=== PATIENT | male | born 1945 | race Caucasian/White ===

== ENCOUNTER 2016-03-29 | Outpatient (CLI) | payer MEDICARE | END 2016-03-29 19:43 | disposition short-term general hospital (02) | CPT/HCPCS: A0170; A0425; A0426 ==

== ENCOUNTER 2016-03-29 14:49 | Emergency (ER) | payer MEDICARE ==
[2016-03-29] MEDS ORDERED: SODIUM CHLORIDE 0.9% 1,000 ML IV ONE ×5 (15:16→18:05)
[2016-03-29] MEDS ORDERED: IBUPROFEN 800 MG TABLET PO STA (15:25)
[2016-03-29] MEDS ORDERED: IBUPROFEN 800 MG TABLET PO ONE (15:28)
[2016-03-29] MEDS ORDERED: METOPROLOL 5 MG/5 ML VIAL IVP ONE ×2 (15:34→15:47)
[2016-03-29] MEDS ORDERED: METOPROLOL 5 MG/5 ML VIAL IVP STA ×2 (15:38)
[2016-03-29] MEDS ORDERED: MAGNESIUM SULFATE 2 GRAM 50 ML IV ONE ×2 (15:41→15:47)
[2016-03-29] MEDS ORDERED: PIPERACILLIN/TAZOBACTAM 4.5 GM in SODIUM CHLORIDE 0.9% MINIBAG 100 ML IV STA (16:31)
[2016-03-29] MEDS ORDERED: VANCOMYCIN INJ 1 GM in SODIUM CHLORIDE 0.9% 250 ML IV STA (16:31)
[2016-03-29] MEDS ORDERED: VANCOMYCIN 1 GM VIAL ONE (17:17)
== END 2016-03-29 19:42 | disposition short-term general hospital (02) ==
DX: A41.9 Sepsis, unspecified organism (principal); I47.1 Supraventricular tachycardia; I48.91 Unspecified atrial fibrillation
CPT/HCPCS: 36415; 71010; 80053; 83605; 83690; 83735; 84100; 84484; 85025; 87040; 87070; 87275; 87276; 87430; 93005; 93010; 96361; 96365; 96375; 99285; 99291; A9270; J3370

== ENCOUNTER 2016-04-05 08:02 | Outpatient (CLI) | payer MEDICARE | END 2016-04-05 08:03 | disposition home or self-care (01) | DX: I48.91 Unspecified atrial fibrillation (principal); I51.4 Myocarditis, unspecified ==

== ENCOUNTER 2021-05-21 17:28 | Outpatient (CLI) | payer MEDICARE | END 2021-05-21 17:29 | disposition critical access hospital (66) | LOC: MERGE 17:28 → EMS 17:28 | DX: R29.810 Facial weakness (principal); R47.81 Slurred speech; R53.1 Weakness | CPT/HCPCS: A0425; A0429 ==

== ENCOUNTER 2021-05-21 17:37 | Inpatient (IN) | payer MEDICARE ==
--- NOTE | 2021-05-21 17:44 | ED Physician Documentation ---
PD HPI FOCAL NEURO - Stated complaint Stated Complaint: RT SIDED WEAKNESS - History obtained from History obtained from: Patient, EMS - History of Present Illness Timing - duration: Hours (1.5) Timing - details: Abrupt onset Weakness: Face, Arm, Hand, Leg, Foot, Right Numbness: No: Face, Arm, Hand, Leg, Foot, Right, Left Associated symptoms: Headache (Patient has a mild gradual onset headache), Chest pain (Patient states that he has mild chest pain.). No: Nausea / vomiting, Seizure Contributing factors: negative: Anticoagulated, Vascular dz, Atrial fibrillation, Prosthetic heart valve Baseline status: positive: A&OX3, ambulatory, indep Similar symptoms before: Has not had sx before Recently seen: Not recently seen - Additional information Additional information: Patient is a 76-year-old male with a history of hypertension who presents to the emergency department with right-sided weakness. Last seen normal about 415 today. He then went and took a nap. When he woke up he could not move his right side or speak. Nothing makes it better or worse. Has not had similar symptoms previously. Brought in by EMS today. Patient states he does not take any medications at home. Review of Systems Ten Systems: 10 systems reviewed and negative Constitutional: denies: Fever, Chills Ears: denies: Ear pain Nose: denies: Rhinorrhea / runny nose, Congestion Respiratory: denies: Dyspnea, Cough, Wheezing GI: denies: Nausea, Vomiting, Diarrhea Musculoskeletal: denies: Neck pain, Back pain Neurologic: denies: Numbness, Headache PD PAST MEDICAL HISTORY - Past Medical History Past Medical History: Yes Cardiovascular: Congestive heart failure, Hypertension - Allergies Allergies/Adverse Reactions: Allergies Allergy/AdvReac Type Severity Reaction Status Date / Time No Known Drug Allergies Allergy Verified 05/21/21 17:55 - Living Situation Living Situation: reports: With family Living Arrangement: reports: At home - Social History Does the pt smoke?: No Does the pt drink ETOH?: No Does the pt have substance abuse?: No - Family History Family history: reports: Non contributory PD ED PE NORMAL - Vitals Vital signs reviewed: Yes - General General: Alert and oriented X 3, No acute distress - HEENT HEENT: PERRL, Moist mucous membranes - Neck Neck: Supple, no meningeal sign - Cardiac Cardiac: RRR - Respiratory Respiratory: No respiratory distress, Clear bilaterally - Abdomen Abdomen: Soft, Non tender, Non distended - Derm Derm: Warm and dry - Extremities Extremities: No edema - Neuro Neuro: Alert and oriented X 3 Eye Opening: Spontaneous Motor: Obeys Commands Verbal: Oriented GCS Score: 15 NIHSS - Time Time: 17:56 - Level of Consciousness Level of consciousness: (0) Alert, Keenly responsive LOC Questions: (0) Answers both Q's correct LOC Commands: (0) Performs both correctly - Gaze Best Gaze: (0) Normal - Visual Visual: (0) No loss - Facial Palsy Facial Palsy: (3) Complete paralysis - Motor Arms (both separate) Motor Arm (right): (4) No movement Motor Arm (left): (0) No drift - Motor Legs (both separate) Motor Leg (right): (2) Some effort against gravity Motor Leg (left): (0) No drift - Limb Ataxia Limb Ataxia: (0) Absent - Sensory Sensory: (0) Normal - Best Language Best Language: (1) [id number] - Dysarthria Dysarthria: (1) [id number] dysarthria - Extinction and Inattention (formally neg Extinction and inattention: (0) No abnormality - Total Score/Results Total Score/Result: 11 Results - Vitals Vitals: Vital Signs - 24 hr 05/21/21 05/21/21 05/21/21 17:56 17:58 18:28 Temperature 36.7 C 36.7 C Heart Rate 99 99 110 H Respiratory 30 H 30 H 30 H Rate Blood Pressure 252/144 H 252/144 H 194/104 H O2 Saturation 94 99 94 05/21/21 05/21/21 05/21/21 18:30 19:00 19:04 Temperature 38.0 C H Heart Rate 112 H 150 H 69 Respiratory 30 H 30 H 23 Rate Blood Pressure 190/100 H 173/99 H 154/78 H O2 Saturation 96 94 94 05/21/21 05/21/21 05/21/21 19:23 19:30 20:00 Temperature 37.3 C Heart Rate 138 H 120 H 124 H Respiratory 26 H 28 H 24 Rate Blood Pressure 130/74 159/87 H O2 Saturation 93 89 L Oxygen O2 Source Nasal cannula - Labs Labs: Laboratory Tests 05/21/21 05/21/21 05/21/21 18:04 18:06 18:06 WBC 7.1 RBC 5.96 Hgb 17.6 Hct 51.8 MCV 86.9 MCH 29.5 MCHC 34.0 RDW 12.7 Plt Count 241 MPV 9.7 Neut # (Auto) Not Reportable Lymph # (Auto) Not Reportable [place] # (Auto) Not Reportable Eos # (Auto) Not Reportable Baso # (Auto) Not Reportable Absolute Nucleated RBC Not Reportable Total Counted 100 Band Neuts % (Manual) 31 H Abnorm Lymph % (Manual) 0 Nucleated RBC % Not Reportable Neutrophils # (Manual) 6.1 Lymphocytes # (Manual) 0.9 L Monocytes # (Manual) 0.0 Eosinophils # (Manual) 0.1 Basophils # (Manual) 0.0 Differential Comment MANUAL DIFFERENTIAL Platelet Estimate NORMAL (130-450,000) Platelet Morphology 1+ LARGE PLATELETS RBC Morph Micro Appear NORMAL APPEARANCE PT 13.8 H INR 1.2 APTT 28.3 Sodium Potassium Chloride Carbon Dioxide Anion Gap BUN Creatinine Estimated GFR (MDRD) Glucose POC Whole Bld Glucose 82 Lactic Acid Calcium Total Bilirubin AST ALT Alkaline Phosphatase Troponin I High Sens B-Natriuretic Peptide Total Protein Albumin Globulin Albumin/Globulin Ratio Urine Color Urine Clarity Urine pH Ur Specific [place] Urine Protein Urine Glucose (UA) Urine Ketones Urine Occult Blood Urine Nitrite Urine Bilirubin Urine Urobilinogen Ur Leukocyte Esterase Urine RBC Urine WBC Ur Squamous Epith Cells Urine Bacteria Ur Microscopic Review Urine Culture Comments Nasal Adenovirus (PCR) Nasal B. parapertussis DNA (PCR) Nasal Coronavir 229E PCR Nasal Coronavir HKU1 PCR Nasal Coronavir NL63 PCR Nasal Coronavir OC43 PCR Nasal Enterovir/Rhinovir PCR Nasal Influenza B PCR Nasal Influenza A PCR Nasal Parainfluen 1 PCR Nasal Parainfluen 2 PCR Nasal Parainfluen 3 PCR Nasal Parainfluen 4 PCR Nasal RSV (PCR) Nasal B.pertussis DNA PCR Nasal C.pneumoniae (PCR) Russell Human Metapneumo PCR Nasal M.pneumoniae (PCR) Nasal SARS-CoV-2 (PCR) Ethyl Alcohol 05/21/21 05/21/21 05/21/21 18:06 18:06 18:06 WBC RBC Hgb Hct MCV MCH MCHC RDW Plt Count MPV Neut # (Auto) Lymph # (Auto) [place] # (Auto) Eos # (Auto) Baso # (Auto) Absolute Nucleated RBC Total Counted Band Neuts % (Manual) Abnorm Lymph % (Manual) Nucleated RBC % Neutrophils # (Manual) Lymphocytes # (Manual) Monocytes # (Manual) Eosinophils # (Manual) Basophils # (Manual) Differential Comment Platelet Estimate Platelet Morphology RBC Morph Micro Appear PT INR APTT Sodium 144 Potassium 3.7 Chloride 106 Carbon Dioxide 25 Anion Gap 13.0 BUN 29 H Creatinine 1.2 Estimated GFR (MDRD) 59 L Glucose 98 POC Whole Bld Glucose Lactic Acid Calcium 9.9 Total Bilirubin 1.0 AST 37 ALT 55 Alkaline Phosphatase 87 Troponin I High Sens 53.2 H* B-Natriuretic Peptide 286 H Total Protein 7.8 Albumin 4.3 Globulin 3.5 Albumin/Globulin Ratio 1.2 Urine Color Urine Clarity Urine pH Ur Specific [place] Urine Protein Urine Glucose (UA) Urine Ketones Urine Occult Blood Urine Nitrite Urine Bilirubin Urine Urobilinogen Ur Leukocyte Esterase Urine RBC Urine WBC Ur Squamous Epith Cells Urine Bacteria Ur Microscopic Review Urine Culture Comments Nasal Adenovirus (PCR) Nasal B. parapertussis DNA (PCR) Nasal Coronavir 229E PCR Nasal Coronavir HKU1 PCR Nasal Coronavir NL63 PCR Nasal Coronavir OC43 PCR Nasal Enterovir/Rhinovir PCR Nasal Influenza B PCR Nasal Influenza A PCR Nasal Parainfluen 1 PCR Nasal Parainfluen 2 PCR Nasal Parainfluen 3 PCR Nasal Parainfluen 4 PCR Nasal RSV (PCR) Nasal B.pertussis DNA PCR Nasal C.pneumoniae (PCR) Russell Human Metapneumo PCR Nasal M.pneumoniae (PCR) Nasal SARS-CoV-2 (PCR) Ethyl Alcohol 05/21/21 05/21/21 05/21/21 19:00 19:00 19:04 WBC RBC Hgb Hct MCV MCH MCHC RDW Plt Count MPV Neut # (Auto) Lymph # (Auto) [place] # (Auto) Eos # (Auto) Baso # (Auto) Absolute Nucleated RBC Total Counted Band Neuts % (Manual) Abnorm Lymph % (Manual) Nucleated RBC % Neutrophils # (Manual) Lymphocytes # (Manual) Monocytes # (Manual) Eosinophils # (Manual) Basophils # (Manual) Differential Comment Platelet Estimate Platelet Morphology RBC Morph Micro Appear PT INR APTT Sodium Potassium Chloride Carbon Dioxide Anion Gap BUN Creatinine Estimated GFR (MDRD) Glucose POC Whole Bld Glucose Lactic Acid Calcium Total Bilirubin AST ALT Alkaline Phosphatase Troponin I High Sens B-Natriuretic Peptide Total Protein Albumin Globulin Albumin/Globulin Ratio Urine Color YELLOW Urine Clarity CLOUDY Urine pH 6.5 Ur Specific [place] 1.015 Urine Protein NEGATIVE Urine Glucose (UA) NEGATIVE Urine Ketones NEGATIVE Urine Occult Blood LARGE H Urine Nitrite POSITIVE H Urine Bilirubin NEGATIVE Urine Urobilinogen 0.2 (NORMAL) Ur Leukocyte Esterase TRACE H Urine RBC TNTC H Urine WBC >25 H Ur Squamous Epith Cells NONE SEEN Urine Bacteria Many H Ur Microscopic Review INDICATED Urine Culture Comments INDICATED Nasal Adenovirus (PCR) NOT DETECTED Nasal B. parapertussis DNA (PCR) NOT DETECTED Nasal Coronavir 229E PCR NOT DETECTED Nasal Coronavir HKU1 PCR NOT DETECTED Nasal Coronavir NL63 PCR NOT DETECTED Nasal Coronavir OC43 PCR NOT DETECTED Nasal Enterovir/Rhinovir PCR NOT DETECTED Nasal Influenza B PCR NOT DETECTED Nasal Influenza A PCR NOT DETECTED Nasal Parainfluen 1 PCR NOT DETECTED Nasal Parainfluen 2 PCR NOT DETECTED Nasal Parainfluen 3 PCR NOT DETECTED Nasal Parainfluen 4 PCR NOT DETECTED Nasal RSV (PCR) NOT DETECTED Nasal B.pertussis DNA PCR NOT DETECTED Nasal C.pneumoniae (PCR) NOT DETECTED Russell Human Metapneumo PCR NOT DETECTED Nasal M.pneumoniae (PCR) NOT DETECTED Nasal SARS-CoV-2 (PCR) NOT DETECTED Ethyl Alcohol < 5.0 05/21/21 19:51 WBC RBC Hgb Hct MCV MCH MCHC RDW Plt Count MPV Neut # (Auto) Lymph # (Auto) [place] # (Auto) Eos # (Auto) Baso # (Auto) Absolute Nucleated RBC Total Counted Band Neuts % (Manual) Abnorm Lymph % (Manual) Nucleated RBC % Neutrophils # (Manual) Lymphocytes # (Manual) Monocytes # (Manual) Eosinophils # (Manual) Basophils # (Manual) Differential Comment Platelet Estimate Platelet Morphology RBC Morph Micro Appear PT INR APTT Sodium Potassium Chloride Carbon Dioxide Anion Gap BUN Creatinine Estimated GFR (MDRD) Glucose POC Whole Bld Glucose Lactic Acid 4.3 H* Calcium Total Bilirubin AST ALT Alkaline Phosphatase Troponin I High Sens B-Natriuretic Peptide Total Protein Albumin Globulin Albumin/Globulin Ratio Urine Color Urine Clarity Urine pH Ur Specific [place] Urine Protein Urine Glucose (UA) Urine Ketones Urine Occult Blood Urine Nitrite Urine Bilirubin Urine Urobilinogen Ur Leukocyte Esterase Urine RBC Urine WBC Ur Squamous Epith Cells Urine Bacteria Ur Microscopic Review Urine Culture Comments Nasal Adenovirus (PCR) Nasal B. parapertussis DNA (PCR) Nasal Coronavir 229E PCR Nasal Coronavir HKU1 PCR Nasal Coronavir NL63 PCR Nasal Coronavir OC43 PCR Nasal Enterovir/Rhinovir PCR Nasal Influenza B PCR Nasal Influenza A PCR Nasal Parainfluen 1 PCR Nasal Parainfluen 2 PCR Nasal Parainfluen 3 PCR Nasal Parainfluen 4 PCR Nasal RSV (PCR) Nasal B.pertussis DNA PCR Nasal C.pneumoniae (PCR) Russell Human Metapneumo PCR Nasal M.pneumoniae (PCR) Nasal SARS-CoV-2 (PCR) Ethyl Alcohol - Rads (name of study) head CT Radiology: Final report received, EMP read contemporaneously, See rad report angio head Radiology: Final report received, EMP read contemporaneously, See rad report angio chest Radiology: Final report received, EMP read contemporaneously, See rad report angio abd/pelvis Radiology: Final report received, EMP read contemporaneously, See rad report PD MEDICAL DECISION MAKING - ED course Complexity details: reviewed old records, reviewed results, re-evaluated patient, considered differential, d/w patient, d/w strategy execution consultant ED course: Patient is a 76-year-old male who originally presented to the emergency department with what appeared to be stroke symptoms. Dense right-sided hemiparesis. The symptoms did resolve fully in the emergency department. Head CT did not show any acute abnormalities but the patient began to develop substernal chest pain during his emergency department stay, shortly after arrival with EMS. He had significant uncontrolled hypertension and was started on a nicardipine drip. 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 Has bilateral pleural effusions as well, potential pneumonia. He also appears to have pyelonephritis given his UTI. Angiogram of the head did not show any acute abnormalities either. Head CT did show a potential subacute stroke in the cote radiata on the left. He was started on IV fluids, gentle because of the potential heart failure causing the pleural effusions. Lactate was elevated. Blood cultures drawn. Telestroke was consulted, Dr. Polo, she recommends treating the sepsis and MRI tomorrow of the brain. Discussed the case with Dr. Almanza, hospitalist who accepts. The patient was able to be titrated off the nicardipine drip while in the emergency department. His wheezing did improve with albuterol. A Valdovinos catheter was placed. Lasix was given for the pleural effusions. This document was made in part using voice recognition software. While efforts are made to proofread this document, sound alike and grammatical errors may occur. - Critical Care Time(min): 50 Time Includes: Direct patient care, Review records, Reassess patient, Document care, Coordinate care, Medical consult, See progress note Data interpretation: See progress note Procedures included in critical care time: See progress note Procedures excluded from critical care time: See progress note - Sepsis Event Sepsis Onset Date: 05/21/21 Sepsis Onset Time: 20:00 Current Stage of Sepsis: Sepsis Initial Hypotension: Not hypotensive Possible source of Sepsis: Pulmonary, Genitourinary Mental/Cognitive Status: Alert/Oriented X3 Reason for not giving 30ml/kg crystalloid fluids: Not in septic shock, Patient has heart failure, Fluid overload potential Capillary refill: Less than 2 seconds Peripheral Pulse Strength: 2+ Slightly Diminished Peripheral Pulse Location: Radial Bedside ultrasound performed: No Departure - Departure Disposition: 66 [facility] DC/Xfer Clinical Impression: Pyelonephritis, TIA (transient ischemic attack), Esophageal mass, Hypoxia Pneumonia Qualifiers: Pneumonia type: due to unspecified organism Laterality: unspecified laterality Lung location: unspecified part of lung Qualified Code(s): J18.9 - Pneumonia, unspecified organism Congestive heart failure Qualifiers: Heart failure type: unspecified Heart failure chronicity: acute on chronic Qualified Code(s): I50.9 - Heart failure, unspecified Fever Qualifiers: Fever type: unspecified Qualified Code(s): R50.9 - Fever, unspecified CAP (community acquired pneumonia) Qualifiers: Laterality: unspecified laterality Qualified Code(s): J18.9 - Pneumonia, unspecified organism Condition: Stable Discharge Date/Time: 05/21/21 20:48
[2021-05-21] MEDS ORDERED: NICARDIPINE HCL 25 MG in SODIUM CHLORIDE 0.9% 240 ML IV STA (18:10)
[2021-05-21 18:12] LABS: BASOPHILS % (AUTO) 0.4 %; MONOCYTES % (AUTO) 0.4 %
--- NOTE | 2021-05-21 18:15 | CT Report ---
PROCEDURE: Head W/O Stroke Protocol INDICATIONS: Right-sided weakness x 1.5 hours TECHNIQUE: Noncontrast 4.5 mm thick angled axial sections acquired from the foramen magnum to the vertex, with c oronal reformats. For radiation dose reduction, the following was used: automated exposure control, adjustment of mA and/or kV according to patient size. COMPARISON: FINDINGS: Image quality: Excellent. CSF spaces: Basal cisterns are patent. No extra-axial fluid collections. Ventricles are normal in size and shape. Brain: Small hypodensity in the left periventricular cote radiata which appears to extend inferiorl y into the left posterior striatocapsular region. No midline shift. No intracranial masses or hemorr donna. Calvert-white matter interface is normal. Skull and face: Calvarium and visualized facial bones are intact, without suspicious lesions. Sinuses: Visualized sinuses and mastoids are clear. IMPRESSION: Small hypodensity in the left cote radiata which may extend left posterior striatocaps ular region is suspicious for acute or subacute infarct. No acute intracranial hemorrhage. Findings d iscussed with Dr. Osorio. This study fulfills neurological imaging criteria for inclusion or exclusion of acute stroke therapie s based on available published neurological imaging guidelines. Reviewed by: Adán Porras MD on 05/21/2021 6:13 PM PDT Approved by: Adán Porras MD on 05/21/2021 6:13 PM PDT Station ID: [id number]
--- NOTE | 2021-05-21 18:16 | XRAY Report ---
PROCEDURE: Chest 1 View X-Ray INDICATIONS: Chest pain TECHNIQUE: One view of the chest was acquired. COMPARISON: None FINDINGS: Surgical changes and devices: None. Diffuse bilateral pulmonary airspace infiltrates, much more pron ounced in the right midlung and right lung base. Findings are likely infectious. No visible pleural effusion or findings of pneumothorax. Heart size is normal. IMPRESSION: Diffuse bilateral pulmonary infiltrates, right greater than left. Findings most likely r epresent pneumonia, although potentially pulmonary edema could cause a similar appearance. Reviewed by: Adán Porras MD on 05/21/2021 6:14 PM PDT Approved by: Adán Porras MD on 05/21/2021 6:14 PM PDT Station ID: [id number]
[2021-05-21 18:18] LABS: HCT - HEMATOCRIT 51.8 % (42.0-52.0); HGB - HEMOGLOBIN 17.6 g/dL (14.0-18.0); MEAN CORPUSCULAR HEMOGLOBIN 29.5 pg (27.0-31.0); MEAN CORPUSCULAR VOLUME 86.9 fL (80.0-94.0); MEAN PLATELET VOLUME 9.7 fL (7.4-11.4); NEUTROPHILS % (AUTO) 82.8 %; PLT - PLATELET COUNT 241 10^3/uL (130-450); RED BLOOD COUNT 5.96 10^6/uL (4.70-6.10); RED CELL DISTRIBUTION WIDTH 12.7 % (12.0-15.0); WHITE BLOOD COUNT 7.1 x10^3/uL (4.8-10.8)
[2021-05-21 18:24] LABS: ABNORMAL LYMPHS % (MANUAL) 0 %
[2021-05-21] MEDS ORDERED: IOVERSOL 320 100 ML VIAL IVP ONE ×2 (18:24→18:53)
[2021-05-21 18:26] LABS: INR 1.2 (0.8-1.2); PT - PROTHROMBIN TIME 13.8 secs (9.9-12.6)
[2021-05-21 18:33] LABS: PARTIAL THROMBOPLASTIN TIME 28.3 secs (24.9-33.3)
[2021-05-21 18:50] LABS: ALBUMIN 4.3 g/dL (3.2-5.5); ALBUMIN/GLOBULIN RATIO 1.2 (1.0-2.2); CALCIUM 9.9 mg/dL (8.5-10.3); CREATININE 1.2 mg/dL (0.6-1.2); POTASSIUM 3.7 mmol/L (3.5-5.0); TOTAL PROTEIN 7.8 g/dL (6.7-8.2)
[2021-05-21 18:55] LABS: BAND NEUTROPHILS % (MANUAL) 31 %; EOSINOPHILS # (MANUAL) 0.1 10^3/uL (0-0.7); LYMPHOCYTES # (MANUAL) 0.9 10^3/uL (1.5-3.5); LYMPHOCYTES % (MANUAL) 13 %; NEUTROPHILS # (MANUAL) 6.1 10^3/uL (1.5-6.6); RBC MORPHOLOGY (MULTIPLE) NORMAL APPEARANCE (NORMAL)
[2021-05-21 18:56] LABS: DIFFERENTIAL COMMENT MANUAL DIFFERENTIAL; PLATELET ESTIMATE, MANUAL NORMAL (130-450,000) (NORMAL); PLATELET MORPHOLOGY 1+ LARGE PLATELETS (NORMAL)
--- NOTE | 2021-05-21 18:58 | CT Report ---
PROCEDURE: ANGIO ABDOMEN/PELVIS W INDICATIONS: chest pain R sided weakness CONTRAST: IV CONTRAST: Optiray 320 ml: 100 PO CONTRAST: *NO PO CONTRAST TECHNIQUE: After the administration of intravenous contrast, 2.5 mm thick sections acquired from the diaphragm t o the symphysis. 10 mm maximum-intensity projection (MIP) reformats were then acquired. For radiati on dose reduction, the following was used: automated exposure control. COMPARISON: Same day CTA chest. FINDINGS: Image quality: Excellent. Lung bases: Patchy groundglass opacity. Bilateral pleural effusions. Heart size is prominent. Small h iatal hernia suspected. Aorta: No abdominal aortic aneurysm. Minimal ectasia of the infrarenal abdominal aorta measuring 2.2 cm. No dissection. Moderate calcified and noncalcified atherosclerotic plaque. Mesenteric arteries: Celiac trunk, superior and inferior mesenteric arteries appear patent. Right pelvic arteries: Mild to moderate calcified plaque. Left pelvic arteries: Mild to moderate calcified plaque. Liver and spleen are normal in size and enhancement. Gallbladder is unremarkable. Biliary system is non dilated. Pancreas enhances normally. No adrenal nodules. Kidneys are normal in size and enhan cement, without hydronephrosis. Non opacified bowel loops are normal in wall thickness and caliber. Diverticulosis. Normal appendix. No free fluid or air. No retroperitoneal or mesenteric adenopathy. No ventral hernias. Fat-containi ng left inguinal hernia. Large right bladder diverticulum, (5/107). Prostatomegaly. No suspicious bony lesions. No vertebral body compression fractures. Multilevel DDD. IMPRESSION: 1. No aortic dissection. 2. Diverticulosis. No free fluid. 3. Large right bladder diverticulum. Prostatomegaly. Findings could be due to bladder outlet obstruct ion. Please see separately dictated CTA chest. Reviewed by: Campbell Fam MD on 05/21/2021 5:57 PM AKGILMAR Approved by: Campbell Fam MD on 05/21/2021 5:57 PM AKDT Station ID: [id number]
[2021-05-21] MEDS ORDERED: FUROSEMIDE 40 MG/4 ML VIAL IVP STA (19:04)
[2021-05-21] MEDS ORDERED: ALBUTEROL NEB 2.5 MG/3 ML INH STA (19:06)
--- NOTE | 2021-05-21 19:10 | CT Report ---
PROCEDURE: ANGIO CHEST W/WO INDICATIONS: chest pain R sided weakness CONTRAST: IV CONTRAST: Optiray 320 ml: 100 PO CONTRAST: *NO PO CONTRAST TECHNIQUE: After the administration of intravenous contrast, 2 mm axial images were acquired from the pulmonary apices to the posterior costophrenic angles during the arterial phase. In addition, 1 mm lung kernel and 5 mm soft tissue kernel reconstructions were performed. 3-dimensional coronal oblique maximum int ensity projection (MIP) reformats, 8 mm axial MIP, and 5 mm coronal and sagittal MPR reformats were t hen performed through the thorax. For radiation dose reduction, the following was used: automated exp osure control, adjustment of mA and/or kV according to patient size. COMPARISON: Same day CTA abdomen and pelvis. CXR earlier today. FINDINGS: Image quality: Excellent. Pulmonary arteries: Pulmonary arteries are normal in size, and demonstrate no intraluminal filling d efects to suggest pulmonary embolism. Aorta: No aortic dissection. No acute aortic syndrome. Moderate plaque at the aortic arch. Lungs and pleura: Moderate patchy groundglass opacity. Bronchial wall thickening. Central airways ar e clear. Moderate size bilateral pleural effusions. No pneumothorax. Mediastinum: Heart size is prominent, trace pericardial fluid. Mediastinal and hilar adenopathy. Rig ht upper peritracheal node measuring 1.2 cm, (3/35). Right hilar node measuring 1.8 cm, (3/51). Subca rinal node measuring 1.5 cm, (3/60). Abnormal thickening of the midesophagus, (3/61). There appears to be luminal narrowing. Small hiatal hernia. Bones and chest wall: No suspicious bony lesions. Ribs and thoracic spine appear intact throughout. No axillary or supraclavicular adenopathy. Left thyroid nodule measuring approximately 1 cm, (3/13) . Abdomen: Please see separately dictated CT abdomen and pelvis. IMPRESSION: 1. No aortic dissection. No central pulmonary embolism. 2. Moderate bilateral pleural effusions. 3. Patchy groundglass opacity moderate severity. Bronchial wall thickening. These findings could be d ue to fluid overload/CHF or infectious/inflammatory etiology. 4. Abnormal thickening of the midesophagus with luminal narrowing. This could be due to esophageal ca ncer. 5. Mediastinal and hilar adenopathy is suspicious for metastatic disease. Results were communicated to Dr. Jaison Huang at 05/21/2021 6:04 PM AKDT. Reviewed by: Campbell Fam MD on 05/21/2021 6:09 PM AKDT Approved by: Campbell Fam MD on 05/21/2021 6:09 PM AKDT Station ID: [id number]
[2021-05-21] MEDS ORDERED: MORPHINE 2 MG/ML CARPUJECT IVP STA (19:13)
[2021-05-21] MEDS ORDERED: levoFLOXacin 750 MG/150 ML 750 MG/150 ML BAG IV STA (19:13)
--- NOTE | 2021-05-21 19:15 | CT Report ---
PROCEDURE: HEAD W INDICATIONS: AMS, right side weakness CONTRAST: IV CONTRAST: Optiray 320 ml: 100 PO CONTRAST: *NO PO CONTRAST TECHNIQUE: 4.5 mm thick angled axial sections acquired from the foramen magnum to the vertex after the administr ation of intravenous contrast. For radiation dose reduction, the following was used: automated expo sure control, adjustment of mA and/or kV according to patient size. COMPARISON: None. FINDINGS: Image quality: Excellent. CSF Spaces: Basal cisterns are patent. No extra-axial fluid collections. Ventricles are normal in size and shape. Brain: No midline shift. No intracranial bleeds or masses. No abnormal intracranial enhancement. Calvert-white interface appears normal. Skull and face: Calvarium and visualized facial bones appear intact, without suspicious lesions. Sinuses: Visualized sinuses and mastoids are clear. IMPRESSION: No abnormal intracranial enhancement or other findings of intracranial mass. Reviewed by: Adán Porras MD on 05/21/2021 7:14 PM PDT Approved by: Adán Porras MD on 05/21/2021 7:14 PM PDT Station ID: [id number]
[2021-05-21 19:27] LABS: BILIRUBIN,URINE NEGATIVE (NEGATIVE); GLUCOSE, URINE (UA) NEGATIVE (NEGATIVE); KETONES,URINE (UA) NEGATIVE (NEGATIVE); LEUKOCYTE ESTERASE, URINE TRACE (NEGATIVE); NITRITE,URINE POSITIVE (NEGATIVE); OCCULT BLOOD,URINE LARGE (NEGATIVE); PH,URINE 6.5 PH (5.0-7.5); PROTEIN,URINE NEGATIVE (NEGATIVE); UROBILINOGEN,URINE 0.2 (NORMAL) E.U./dL (NORMAL)
[2021-05-21 19:40] LABS: BACTERIA,URINE Many /HPF (None Seen); CLARITY,URINE CLOUDY (CLEAR); RBC,URINE TNTC /HPF (0-5); SQUAMOUS EPITHELIAL CELL,UR NONE SEEN (<= Few); WBC,URINE >25 /HPF (0-3)
[2021-05-21 20:10] LABS: B. PARAPERTUSSIS- RESP PCR PAN NOT DETECTED; B. PERTUSSIS- RESP PCR PANEL NOT DETECTED; C. PNEUMONIAE- RESP PCR PANEL NOT DETECTED; CORONAVIRUS 229E-RESP PCR NOT DETECTED; CORONAVIRUS HKU1-RESP PCR NOT DETECTED; CORONAVIRUS NL63-RESP PCR NOT DETECTED; CORONAVIRUS OC43-RESP PCR NOT DETECTED; HUMAN METAPNEUMOVIRUS NOT DETECTED; INFLUENZA A- RESP PCR PANEL NOT DETECTED; INFLUENZA B - RESP PCR PANEL NOT DETECTED; M. PNEUMONIAE- RESP PCR PANEL NOT DETECTED; PARAINFLUENZA VIRUS 1 NOT DETECTED; PARAINFLUENZA VIRUS 2 NOT DETECTED; PARAINFLUENZA VIRUS 3 NOT DETECTED; PARAINFLUENZA VIRUS 4 NOT DETECTED; RHINOVIRUS/ENTEROVIRUS NOT DETECTED; RSV- RESP PCR PANEL NOT DETECTED; SARS-CoV-2 -RESP PCR PANEL NOT DETECTED
[2021-05-21] MEDS ORDERED: MORPHINE 2 MG/ML CARPUJECT IVP PRN (20:19)
[2021-05-21] MEDS ORDERED: ONDANSETRON 4 MG/2 ML VIAL IVP PRN (20:19)
--- NOTE | 2021-05-21 20:38 | HISTORY & PHYSICAL EXAMINATION ---
Chief Complaint - Chief Complaint Chief Complaint: Stroke-like symptoms History of Present Illness - Admitted From Admitted From:: ED - History Obtained From History obtained from: ED provider and the patient - History of Present Illness HPI Comment/Other: This is a 76-year-old white male who reported that he has a history of high blood pressure and had an AZ, but he takes no medicines. In 2017 he had an AZ, was treated at [facility], but does not follow with a university administrative assistant and said he stopped all his medicines shortly after being diagnosed because the medicines "did not make him feel better". He also has not seen a doctor since 2017. He is a retiring owusu, does minimal carpentry work now. He lives with his girlfriend and 20-year-old son. Today after taking an afternoon nap he awoke and could not move his right arm, right leg and could not speak. An ambulance was called. He presented to the ED and a telestroke call was started. He underwent brain imaging with CT that showed no hemorrhage but a possible subacute stroke. His blood pressure was 250/150. As the telestroke consultation was ongoing, all of his symptoms resolved. Then he started to develop chest pain and then shortness of breath and then a fever. He had no chest pain, shortness of breath or fever yesterday, he states. He then underwent a CTA to assure there was no aortic dissection and there was none. CT chest findings were that of groundglass opacifications consistent with an atypical pneumonia, moderate bilateral pleural effusions, a mid esophageal mass constricting the esophageal lumen and bilateral hilar lymph nodes consistent with metastesis. He then spiked a fever to 38.0 degrees C. Urinalysis returned showing positive white blood cells and many bacteria. Lactic Acid level 4.3. WBC was normal at 7 but Bands were 31%. BNP elevated at 286, first troponin 53. A CT of the abdomen and pelvis had also been done which shows evidence of prostatic hypertrophy, a diverticulum of the right side of the bladder and no fat stranding of the kidneys was described. He was started on a nicardipine drip for the very high blood pressure and got a nebulizer for his shortness of breath, Lasix IV 40 mg, morphine IV and a Valdovinos catheter was inserted. His blood pressure improved to the 130s and the nicardipine drip was then turned off. He had blood cx done and was given iv Levaquin. Then his heart rate, which was 99 in sinus rhythm increased to 130, when he spiked a fever and after Albuterol. The patient is being admitted to the ICU for a TIA, malignant hypertension, CHF exacerbation, community-acquired pneumonia, UTI and sepsis. We discussed his wishes for CODE BLUE and he does not know what he wants, therefore by default he will be a Full Code. History - Past Medical History Cardiovascular: reports: Congestive heart failure (Takes no meds), Hypertension (Takes no meds), AZ (In 2017.) Respiratory: reports: None Neuro: reports: None Endocrine/Autoimmune: reports: None GI: reports: None : reports: None HEENT: reports: None Psych: reports: None Musculoskeletal: reports: None - Family & Social History Living arrangement: At home Living Situation: With spouse/s.o., With family Social History Notes: He does not smoke cigarettes, cigars or marijuana. He never smoked. He drinks extremely rare alcohol. - Substance History Use: Uses substance without health or social issues: NONE Meds/Allgy - Allergies Allergies/Adverse Reactions: Allergies Allergy/AdvReac Type Severity Reaction Status Date / Time No Known Drug Allergies Allergy Verified 05/21/21 17:55 Review of Systems - Constitutional Constitutional: reports: Other (He is Covid vaccinated) - Respiratory Respiratory: reports: SOB with exertion (He has had this for "a while" and thought it was from "old age".) - Gastrointestinal Gastrointestinal: reports: Poor appetite, Other (Food "gets stuck" and he has to chew to fine pieces or use liquids to push it down.) - All Other Systems All Other Systems: reports: Reviewed and negative Exam - Vital Signs Reviewed Vital Signs: Yes Vital Signs: Vital Signs x48h Temp Pulse Resp BP Pulse Ox 05/21/21 20:00 37.3 C 124 H 24 159/87 H 89 L 05/21/21 19:30 120 H 28 H 130/74 93 05/21/21 19:23 138 H 26 H 05/21/21 19:04 69 23 154/78 H 94 05/21/21 19:00 38.0 C H 150 H 30 H 173/99 H 94 05/21/21 18:30 112 H 30 H 190/100 H 96 05/21/21 18:28 110 H 30 H 194/104 H 94 05/21/21 17:58 36.7 C 99 30 H 252/144 H 99 05/21/21 17:56 36.7 C 99 30 H 252/144 H 94 - Physical Exam General Appearance: positive: Moderate distress (Tachypneic with speaking), Other (febrile at 39.9C) Eyes Bilateral: positive: Normal inspection, EOMI ENT: positive: ENT inspection nml, No signs of dehydration Neck: positive: Nml inspection, Thyroid nml Respiratory: positive: Other (Diminished at both bases anteriorly) Cardiovascular: positive: Irregularly irregular, Tachycardia Peripheral Pulses: positive: 2+ Abdomen: positive: Non-tender, Nml bowel sounds, No distention Skin: positive: Warm, Dry Extremities: positive: Non-tender, No pedal edema, Other (Purple petechiae are seen of several toes of the right foot only) Neurologic/Psychiatric: positive: Oriented x3, Motor nml Sepsis Event Note (H) - Evaluation Current Stage of Sepsis: Sepsis Possible source of Sepsis: positive: Pulmonary, Genitourinary - Sepsis Criteria Sepsis Criteria: Recorded Heart Rate greater than 90 bpm, WBC count greater than 10% bands, Metabolic: lactate > 2 mmol/L Conclusion/Plan - Problem List (1) TIA (transient ischemic attack) Conclusion/Plan: Patient had a significant neuro deficit at presentation of the right arm, right leg and speech deficiency. He was 1.5 hours from his last known well at presentation. Telestroke call was started however his symptoms entirely resolved and the Neurologist signed off. The CT head shows a small hypodensity in the left cote radiata extending to the left posterior striato-capsular region, suspicious for acute or subacute stroke. We will do neuro checks every 4 hours, in the ICU because of his comorbidities. Will start 1 baby aspirin daily. Will start nightly statin. We will obtain an Echo with bubble study to look for source of embolus. Will obtain a brain MRI to define the brain pathology. Because he will be started on IV Lasix, will add other blood pressure medications when possible, but will not overtreat his HTN, but allow permissive HTN for 24 hours, because of the TIA/subacute stroke. (2) Sepsis Conclusion/Plan: He has a fever, elevated bands, elevated Lactic Acid, tachycardia and the source is either a UTI or pneumonia or both. He is being admitted to the ICU. We will not give aggressive IV fluids because of the moderate-sized bilateral pleural effusion and his dyspnea. will follow his lactic acid level to assure that it is improving We will treat the fever with Tylenol Will continue to treat the infection with broad-spectrum IV antibiotics, using Levaquin to cover both pneumonia and UTI. Await blood culture results, that were drawn in the ED before antibiotics were started. Follow CBC with differential daily. (3) UTI (urinary tract infection) Conclusion/Plan: Urinalysis is abnormal consistent with UTI. It does not appear to be an ascsending UTI since no fat stranding was seen of the kidneys, however he does have a dilated bladder and BPH. IV antibiotics planned as described above. Await urine culture and blood culture results to tailor antibiotics. (4) CAP (community acquired pneumonia) Conclusion/Plan: He denies a cough and despite this has significant groundglass abnormalities in his lung parenchyma. He has never been a smoker. He is Covid neg and was Covid vaccinated. Will order a sputum culture if he makes sputum We will treat with IV antibiotics, as described above. We will order supplemental oxygen as needed, to keep O2 sats >90%. Will order nebulizers as needed for dyspnea or wheezing, using Xopenex. Qualifiers: Laterality: unspecified laterality Qualified Code(s): J18.9 - Pneumonia, unspecified organism (5) Pleural effusion Conclusion/Plan: These could be parapneumonic effusions or from CHF. We will treat with IV twice daily Lasix. Will consider thoracentesis as well (6) Congestive heart failure Conclusion/Plan: He has a history of CHF, per his description, and the pleural effusions are likely from CHF since they are bilateral. Perhaps his uncontrolled high blood pressure has caused CHF and the current volume overload. Will cycle his troponins. Follow BNP daily. Begin Lasix IV twice daily, follow I's and O's, daily weights, electrolytes and magnesium and replace when low. Obtain an Echocardiogram. Qualifiers: Heart failure type: unspecified Heart failure chronicity: acute on chronic Qualified Code(s): I50.9 - Heart failure, unspecified (7) Malignant essential hypertension with CHF without renal disease Conclusion/Plan: Since he has not seen a provider in 5 years, it is unknown if he has had untreated hypertension during this time. He presented with blood pressure 250/150, currently it is normal after having several hours of nicardipine drip. Because he will be started on IV Lasix, will add other blood pressure medications when possible, will not overtreat HTN, but allow permissive HTN for 24 hours, because of the TIA/subacute stroke (8) Esophageal mass Conclusion/Plan: He does admit to trouble with food: needs to chew it fine or it gets stuck. He has not sought medical advice for this sx. 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 The details of this finding have not yet been discussed with him because of him being in extremist from his respiratory distress, fever and sepsis. This will need close further attention. (9) BPH (benign prostatic hyperplasia) Conclusion/Plan: As per CT of the pelvis. A Valdovinos has been inserted and will be continued (10) Petechial rash Conclusion/Plan: Since this is unilateral there is concern that he may have had thrown several small peripheral emboli. But he does not have an ischemic foot or toes, since there is no pain at each sight and he has a good DP pulse palpable. This finding is also concerning in light of the subacute stroke, since he may have a cardiovascular source that is showering peripheral emboli to several locations. He has good dorsalis pedis pulse on that side and the other leg as well. We will continue with his daily aspirin. We will continue to monitor the toes. Will obtain Echo to evaluate for cardiac source of embolus. (11) Non compliance with medical treatment Conclusion/Plan: According to the patient, he has a history of hypertension and had an AZ and heart failure in 2017, but takes no medications whatsoever. He last saw a provider 5 years ago. - Lab Results Fish Bones: 05/21/21 18:06 05/21/21 18:06 - Diagnostic Imaging Results Diagnostic Imaging Results: positive: Final report reviewed - Other Other Results/Comments: Attestation: The patient will be discharged or transferred to another facility within 96 hours: Yes.
[2021-05-21] MEDS ORDERED: FAMOTIDINE 20 MG TABLET PO SCH (21:00)
[2021-05-21] MEDS: ACETAMINOPHEN 325 MG TABLET PO PRN (21:16)
[2021-05-21] MEDS: SODIUM CHLORIDE FLUSH 0.9% 10 ML SYRINGE IVP PRN ×2 (21:16→21:35)
[2021-05-21] MEDS ORDERED: METOPROLOL 5 MG/5 ML VIAL IVP SCH (22:00)
[2021-05-21] MEDS ORDERED: diltiaZEM INJ 5 MG/ML VIAL ONE (22:01)
[2021-05-21] MEDS: diltiaZEM INJ 125 MG in DEXTROSE 5% 100 ML IV SCH (22:01)
--- NOTE | 2021-05-21 22:33 | PROVIDER PROGRESS NOTE ---
Table Runner Note - Table Runner Note Table Runner Note: As the patient was being admitted to the ICU, the ICU nurse informed me that his heart rate was 180-200 and he was in new A. fib. Patient was seen. He was in moderate respiratory distress still. He denied any chest pain, had no cough, no new complaints. BP 150/100, HR 160-180 in Afib. Temp 39.9 C Physical exam was unchanged from his admission exam, which was recently done. An EKG was performed (which I interpreted): A. fib, rate 198, QS waves are present V1 through V4 with ST segment elevation in V1 through V5. There are scooping ST depressions and flat T waves in leads I, 2, 3, aVF. Since the EKG done in the ED, several hours earlier, A. fib with RVR is new, QS waves in V4 is new, ST elevation is more prominent in V1 through V3 but was present then, inferior ST abnormalities are new. His 2nd troponin has returned and it went from 53 >> 87. Imp: New onset of Afib with RVR. Acute NSTEMI, poss demand ischemia. Plan: Pt now in critical condition; remain in ICU. Will begin IV diltiazem drip. Treat his fever with Tylenol, since the rising fever is adding to his tachycardia. 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 The Echo showed showed left atrial and right atrial enlargement, left ventricle enlarged with severe global hypokinesis, LVH, EF approximately 20%, the heart rate was 150 during the exam. The images were not clear enough to evaluate for an intracardiac clot. Will begin po Metoprolol Tartrate, topical NTPaste, Lisinopril, Spironolactone. Continue aspirin, statin and iv Lasix. Continue iv Morphine prn dyspnea. His CHADS score =3 (CHF, HTN, stroke), but we cannot start therapeutic anticoagulation currently because of the subacute stroke, since the risk of turning it into a hemorrhagic stroke is high in the first 24 hours. Await the complete Echo result tomorrow. The patient was updated on all his diagnoses and told he is in critical condition. CRITICAL CARE TIME SPENT: 45 min.
[2021-05-21] MEDS ORDERED: ASPIRIN CHEW 81 MG TABLET PO STA (23:08)
[2021-05-21] MEDS: ATORVASTATIN 40 MG TABLET PO SCH (23:18)
[2021-05-21] MEDS: METOPROLOL TARTRATE 25 MG TABLET PO SCH (23:18)
[2021-05-22] MEDS: SODIUM CHLORIDE FLUSH 0.9% 10 ML SYRINGE IVP SCH ×3 (00:08→17:07)
[2021-05-22] MEDS: NITROGLYCERIN 2% PASTE TOP SCH ×3 (00:08→16:01)
[2021-05-22 04:19] LABS: EOSINOPHILS % (AUTO) 0.3 %; HCT - HEMATOCRIT 44.4 % (42.0-52.0); HGB - HEMOGLOBIN 15.3 g/dL (14.0-18.0); LYMPHOCYTES % (AUTO) 0.7 %; MEAN CORPUSCULAR HEMOGLOBIN 29.7 pg (27.0-31.0); MEAN CORPUSCULAR HGB CONC 34.5 g/dL (32.0-36.0); MEAN PLATELET VOLUME 10.2 fL (7.4-11.4); NEUTROPHILS % (AUTO) 94.5 %; PLT - PLATELET COUNT 199 10^3/uL (130-450); RED BLOOD COUNT 5.16 10^6/uL (4.70-6.10); RED CELL DISTRIBUTION WIDTH 12.8 % (12.0-15.0)
[2021-05-22 04:21] LABS: ABNORMAL LYMPHS % (MANUAL) 0 %; BAND NEUTROPHILS % (MANUAL) 0 %; WHITE BLOOD COUNT 50.9 x10^3/uL (4.8-10.8)
[2021-05-22 04:26] LABS: CALCIUM, IONIZED 1.06 mmol/L (1.15-1.33); VBG PH 7.456 (7.31-7.41)
[2021-05-22 04:33] LABS: CALCIUM 8.8 mg/dL (8.5-10.3); CREATININE 1.5 mg/dL (0.6-1.2); MAGNESIUM 1.7 mg/dL (1.7-2.8); PHOSPHORUS 3.6 mg/dL (2.5-4.6)
[2021-05-22 04:37] LABS: CHOL/HDL RATIO 3.8 (<5.0); CHOLESTEROL 91 mg/dL; HDL CHOLESTEROL 24 mg/dL; LDL CHOLESTEROL,CALCULATED 51 mg/dL; LDL/HDL RATIO 2.1 (<3.6); TRIGLYCERIDES 80 mg/dL; VLDL CHOLESTEROL 16 mg/dL
[2021-05-22 04:38] LABS: DIFFERENTIAL COMMENT MANUAL DIFFERENTIAL; LYMPHOCYTES # (MANUAL) 0.5 10^3/uL (1.5-3.5); LYMPHOCYTES % (MANUAL) 1 %; MONOCYTES # (MANUAL) 1.5 10^3/uL (0.0-1.0); NEUTROPHILS # (MANUAL) 48.9 10^3/uL (1.5-6.6); PLATELET ESTIMATE, MANUAL NORMAL (130-450,000) (NORMAL); PLATELET MORPHOLOGY NORMAL APPEARANCE (NORMAL); RBC MORPHOLOGY (MULTIPLE) NORMAL APPEARANCE (NORMAL); WBC MORPHOLOGY (MULTIPLE) NORMAL APPEARANCE (NORMAL)
[2021-05-22] MEDS: POTASSIUM CHLORIDE 20 MEQ TABLET PO SCH ×2 (05:09→09:03)
[2021-05-22] MEDS: MAGNESIUM OXIDE 400 MG TABLET PO SCH ×4 (05:09→23:47)
[2021-05-22] MEDS: CALCIUM CARBONATE CHEW 500 MG TABLET PO SCH ×2 (05:09→09:34)
[2021-05-22] MEDS ORDERED: FUROSEMIDE 20 MG/2 ML VIAL IVP SCH (06:00)
[2021-05-22] MEDS: SODIUM CHLORIDE FLUSH 0.9% 10 ML SYRINGE IVP PRN ×2 (06:14→14:59)
--- NOTE | 2021-05-22 07:48 | PROVIDER PROGRESS NOTE ---
Subjective - Prog Note Date Prog Note Date: 05/22/21 - Subjective Subjective: He feels improved compared to yesterday. He does not really feel short of breath. Denies any pain. Current Medications - Current Medications Current Medications: Active Medications Acetaminophen (Acetaminophen 325 Mg Tablet) 650 mg PO Q4HR PRN PRN Reason: Pain or Fever > 38C (100.4F) Last Admin: 05/21/21 21:16 Dose: 650 mg Aspirin (Aspirin Ec 81 Mg Tablet) 81 mg PO [facility]ILY [facility] Atorvastatin Calcium (Atorvastatin 40 Mg Tablet) 80 mg PO QPM [facility] Last Admin: 05/21/21 23:18 Dose: 80 mg Calcium Carbonate/Glycine (Calcium Carbonate Chew 500 Mg Tablet) 1,250 mg PO Q4H [facility]; Protocol Stop: 05/22/21 09:01 Last Admin: 05/22/21 05:09 Dose: 1,250 mg Enoxaparin Sodium (Enoxaparin 40 Mg/0.4 Ml Syringe) 40 mg SUBQ [facility] Diltiazem HCl 125 mg/ Dextrose 125 mls @ 5 mls/hr IV .Q25H [facility]; Protocol Last Titration: 05/22/21 02:30 Dose: 5 mg/hr, 5 mls/hr Cefepime HCl 2 gm/ Sodium (Chloride) 100 mls @ 200 mls/hr IV BID TOMMY Levalbuterol HCl (Levalbuterol 1.25 Mg/3 Ml Neb) 1.25 mg INH Q4H PRN PRN Reason: Shortness of Air/Wheezing Magnesium Oxide (Magnesium Oxide 400 Mg Tablet) 400 mg PO Q6H [facility]; Protocol Stop: 05/22/21 11:01 Last Admin: 05/22/21 05:09 Dose: 400 mg Metoprolol Tartrate (Metoprolol Tartrate 25 Mg Tablet) 25 mg PO TIDWM [facility] Last Admin: 05/21/21 23:18 Dose: 25 mg Morphine Sulfate (Morphine 2 Mg/Ml Carpuject) 2 mg IVP Q6HR PRN PRN Reason: Dyspnea Nitroglycerin (Nitroglycerin 2% Paste) 0.5 inch TOP Q8H [facility] Last Admin: 05/22/21 00:08 Dose: 0.5 inch Ondansetron HCl (Ondansetron 4 Mg/2 Ml Vial) 4 mg IVP Q6HR PRN PRN Reason: Nausea / Vomiting Potassium Chloride (Potassium Chloride 20 Meq Tablet) 20 meq PO Q2H [facility]; Protocol Stop: 05/22/21 08:01 Last Admin: 05/22/21 05:09 Dose: 20 meq Sodium Chloride (Sodium Chloride Flush 0.9% 10 Ml Syringe) 10 ml IVP 0100,0900,1700 TOM[facility] Last Admin: 05/22/21 00:08 Dose: 10 ml Sodium Chloride (Sodium Chloride Flush 0.9% 10 Ml Syringe) 10 ml IVP PRN PRN PRN Reason: NEEDED PER PROVIDER ORDERS Last Admin: 05/22/21 06:14 Dose: 10 ml Vancomycin HCl (Vancomycin: Pharmacy To Dose) 1 each ONCE PRN PRN Reason: PER PHARMACY Objective - Vital Signs/Intake & Output Reviewed Vital Signs: Yes Vital Signs: Vital Signs Temp Pulse Pulse Resp BP BP Pulse Ox 05/22/21 07:31 37.1 C 71 26 H 96 05/22/21 07:00 37.1 C 71 26 H 115/74 96 05/22/21 06:00 37.2 C 78 26 H 121/74 95 05/22/21 05:05 86 26 H 05/22/21 05:01 70 23 05/22/21 05:00 75 75 21 95/61 95/61 96 05/22/21 04:59 77 22 05/22/21 04:55 70 12 05/22/21 04:50 67 14 05/22/21 04:45 75 16 05/22/21 04:40 71 18 05/22/21 04:35 81 31 H 05/22/21 04:30 78 27 H 05/22/21 04:25 74 27 H 05/22/21 04:20 77 29 H 05/22/21 04:15 78 13 05/22/21 04:10 75 16 05/22/21 04:05 67 18 05/22/21 04:01 71 21 05/22/21 04:00 37.4 C 74 71 15 103/64 103/64 96 05/22/21 03:59 71 13 05/22/21 03:55 66 13 05/22/21 03:50 69 12 Intake & Output: Intake & Output 05/19/21 05/20/21 05/21/21 05/22/21 22:59 23:59 23:59 23:59 Intake Total 779.167 557.333 Output Total 8450 490 Balance -750.833 67.333 - Objective General Appearance: positive: No acute distress, Alert Eyes Bilateral: positive: Normal inspection, Conjunctivae nml ENT: positive: ENT inspection nml, Other (Nasal cannula in place.) Cardiovascular: positive: Irregularly irregular. negative: Tachycardia Skin: positive: Warm, Dry - Lab Results Fish Bones: 05/22/21 04:10 05/22/21 04:10 Other Labs: Lab Results x24hrs 05/22/21 05/22/21 05/22/21 Range/Units 04:10 04:10 04:10 WBC (4.8-10.8) x10^3/uL RBC (4.70-6.10) 10^6/uL Hgb (14.0-18.0) g/dL Hct (42.0-52.0) % MCV (80.0-94.0) fL MCH (27.0-31.0) pg MCHC (32.0-36.0) g/dL RDW (12.0-15.0) % Plt Count (130-450) 10^3/uL MPV (7.4-11.4) fL Neut # (Auto) Lymph # (Auto) [place] # (Auto) Eos # (Auto) Baso # (Auto) Absolute Nucleated RBC Total Counted Band Neuts % (Manual) (0 - 10) % Abnorm Lymph % (Manual) % Nucleated RBC % Neutrophils # (Manual) (1.5-6.6) 10^3/uL Lymphocytes # (Manual) (1.5-3.5) 10^3/uL Monocytes # (Manual) (0.0-1.0) 10^3/uL Eosinophils # (Manual) (0-0.7) 10^3/uL Basophils # (Manual) (0-0.1) 10^3/uL Differential Comment WBC Morphology (NORMAL) Platelet Estimate (NORMAL) Platelet Morphology (NORMAL) RBC Morph Micro Appear (NORMAL) PT (9.9-12.6) secs INR (0.8-1.2) APTT (24.9-33.3) secs VBG pH 7.456 H (7.31-7.41) Ionized Calcium 1.06 L (1.15-1.33) mmol/L Sodium (135-145) mmol/L Potassium (3.5-5.0) mmol/L Chloride (101-111) mmol/L Carbon Dioxide (21-32) mmol/L Anion Gap (6-13) BUN (6-20) mg/dL Creatinine (0.6-1.2) mg/dL Estimated GFR (MDRD) (>89) Glucose (70-100) mg/dL POC Whole Bld Glucose (70 - 100) mg/dL Lactic Acid 2.9 H (0.5-2.2) mmol/L Calcium (8.5-10.3) mg/dL Phosphorus (2.5-4.6) mg/dL Magnesium (1.7-2.8) mg/dL Total Bilirubin (0.2-1.0) mg/dL AST (10-42) IU/L ALT (10-60) IU/L Alkaline Phosphatase (42-121) IU/L Troponin I High Sens (2.3-19.7) ng/L B-Natriuretic Peptide (5-100) pg/mL Total Protein (6.7-8.2) g/dL Albumin (3.2-5.5) g/dL Globulin (2.1-4.2) g/dL Albumin/Globulin Ratio (1.0-2.2) Triglycerides 80 ( - 149) mg/dL Cholesterol 91 ( - 199) mg/dL LDL Cholesterol, Calc 51 ( - 129) mg/dL VLDL Cholesterol 16 mg/dL HDL Cholesterol 24 L (60 - ) mg/dL LDL/HDL Ratio 2.1 (<3.6) Cholesterol/HDL Ratio 3.8 (<5.0) TSH (0.34-5.60) uIU/mL Urine Color Urine Clarity (CLEAR) Urine pH (5.0-7.5) PH Ur Specific [place] (1.002-1.030) Urine Protein (NEGATIVE) mg/dL Urine Glucose (UA) (NEGATIVE) mg/dL Urine Ketones (NEGATIVE) mg/dL Urine Occult Blood (NEGATIVE) Urine Nitrite (NEGATIVE) Urine Bilirubin (NEGATIVE) Urine Urobilinogen (NORMAL) E.U./dL Ur Leukocyte Esterase (NEGATIVE) Urine RBC (0-5) /HPF Urine WBC (0-3) /HPF Ur Squamous Epith Cells (<= Few) Urine Bacteria (None Seen) /HPF Ur Microscopic Review Urine Culture Comments Nasal Adenovirus (PCR) Nasal B. parapertussis DNA (PCR) Nasal Coronavir 229E PCR Nasal Coronavir HKU1 PCR Nasal Coronavir NL63 PCR Nasal Coronavir OC43 PCR Nasal Enterovir/Rhinovir PCR Nasal Influenza B PCR Nasal Influenza A PCR Nasal Parainfluen 1 PCR Nasal Parainfluen 2 PCR Nasal Parainfluen 3 PCR Nasal Parainfluen 4 PCR Nasal RSV (PCR) Nasal Screen MRSA (PCR) (NEGATIVE) Nasal B.pertussis DNA PCR Nasal C.pneumoniae (PCR) Russell Human Metapneumo PCR Nasal M.pneumoniae (PCR) Nasal SARS-CoV-2 (PCR) Ethyl Alcohol mg/dL 05/22/21 05/22/21 05/22/21 Range/Units 04:10 04:10 04:10 WBC (4.8-10.8) x10^3/uL RBC (4.70-6.10) 10^6/uL Hgb (14.0-18.0) g/dL Hct (42.0-52.0) % MCV (80.0-94.0) fL MCH (27.0-31.0) pg MCHC (32.0-36.0) g/dL RDW (12.0-15.0) % Plt Count (130-450) 10^3/uL MPV (7.4-11.4) fL Neut # (Auto) Lymph # (Auto) [place] # (Auto) Eos # (Auto) Baso # (Auto) Absolute Nucleated RBC Total Counted Band Neuts % (Manual) (0 - 10) % Abnorm Lymph % (Manual) % Nucleated RBC % Neutrophils # (Manual) (1.5-6.6) 10^3/uL Lymphocytes # (Manual) (1.5-3.5) 10^3/uL Monocytes # (Manual) (0.0-1.0) 10^3/uL Eosinophils # (Manual) (0-0.7) 10^3/uL Basophils # (Manual) (0-0.1) 10^3/uL Differential Comment WBC Morphology (NORMAL) Platelet Estimate (NORMAL) Platelet Morphology (NORMAL) RBC Morph Micro Appear (NORMAL) PT (9.9-12.6) secs INR (0.8-1.2) APTT (24.9-33.3) secs VBG pH (7.31-7.41) Ionized Calcium (1.15-1.33) mmol/L Sodium (135-145) mmol/L Potassium (3.5-5.0) mmol/L Chloride (101-111) mmol/L Carbon Dioxide (21-32) mmol/L Anion Gap (6-13) BUN (6-20) mg/dL Creatinine (0.6-1.2) mg/dL Estimated GFR (MDRD) (>89) Glucose (70-100) mg/dL POC Whole Bld Glucose (70 - 100) mg/dL Lactic Acid (0.5-2.2) mmol/L Calcium (8.5-10.3) mg/dL Phosphorus (2.5-4.6) mg/dL Magnesium (1.7-2.8) mg/dL Total Bilirubin (0.2-1.0) mg/dL AST (10-42) IU/L ALT (10-60) IU/L Alkaline Phosphatase (42-121) IU/L Troponin I High Sens 70.7 H* (2.3-19.7) ng/L B-Natriuretic Peptide 1312 H (5-100) pg/mL Total Protein (6.7-8.2) g/dL Albumin (3.2-5.5) g/dL Globulin (2.1-4.2) g/dL Albumin/Globulin Ratio (1.0-2.2) Triglycerides ( - 149) mg/dL Cholesterol ( - 199) mg/dL LDL Cholesterol, Calc ( - 129) mg/dL VLDL Cholesterol mg/dL HDL Cholesterol (60 - ) mg/dL LDL/HDL Ratio (<3.6) Cholesterol/HDL Ratio (<5.0) TSH 2.44 (0.34-5.60) uIU/mL Urine Color Urine Clarity (CLEAR) Urine pH (5.0-7.5) PH Ur Specific [place] (1.002-1.030) Urine Protein (NEGATIVE) mg/dL Urine Glucose (UA) (NEGATIVE) mg/dL Urine Ketones (NEGATIVE) mg/dL Urine Occult Blood (NEGATIVE) Urine Nitrite (NEGATIVE) Urine Bilirubin (NEGATIVE) Urine Urobilinogen (NORMAL) E.U./dL Ur Leukocyte Esterase (NEGATIVE) Urine RBC (0-5) /HPF Urine WBC (0-3) /HPF Ur Squamous Epith Cells (<= Few) Urine Bacteria (None Seen) /HPF Ur Microscopic Review Urine Culture Comments Nasal Adenovirus (PCR) Nasal B. parapertussis DNA (PCR) Nasal Coronavir 229E PCR Nasal Coronavir HKU1 PCR Nasal Coronavir NL63 PCR Nasal Coronavir OC43 PCR Nasal Enterovir/Rhinovir PCR Nasal Influenza B PCR Nasal Influenza A PCR Nasal Parainfluen 1 PCR Nasal Parainfluen 2 PCR Nasal Parainfluen 3 PCR Nasal Parainfluen 4 PCR Nasal RSV (PCR) Nasal Screen MRSA (PCR) (NEGATIVE) Nasal B.pertussis DNA PCR Nasal C.pneumoniae (PCR) Russell Human Metapneumo PCR Nasal M.pneumoniae (PCR) Nasal SARS-CoV-2 (PCR) Ethyl Alcohol mg/dL 05/22/21 05/22/21 05/21/21 Range/Units 04:10 04:10 21:20 WBC 50.9 H* (4.8-10.8) x10^3/uL RBC 5.16 (4.70-6.10) 10^6/uL Hgb 15.3 (14.0-18.0) g/dL Hct 44.4 (42.0-52.0) % MCV 86.0 (80.0-94.0) fL MCH 29.7 (27.0-31.0) pg MCHC 34.5 (32.0-36.0) g/dL RDW 12.8 (12.0-15.0) % Plt Count 199 (130-450) 10^3/uL MPV 10.2 (7.4-11.4) fL Neut # (Auto) Not Reportable Lymph # (Auto) Not Reportable [place] # (Auto) Not Reportable Eos # (Auto) Not Reportable Baso # (Auto) Not Reportable Absolute Nucleated RBC Not Reportable Total Counted 100 Band Neuts % (Manual) 0 (0 - 10) % Abnorm Lymph % (Manual) 0 % Nucleated RBC % Not Reportable Neutrophils # (Manual) 48.9 H (1.5-6.6) 10^3/uL Lymphocytes # (Manual) 0.5 L (1.5-3.5) 10^3/uL Monocytes # (Manual) 1.5 H (0.0-1.0) 10^3/uL Eosinophils # (Manual) 0.0 (0-0.7) 10^3/uL Basophils # (Manual) 0.0 (0-0.1) 10^3/uL Differential Comment MANUAL DIFFERENTIAL WBC Morphology NORMAL APPEARANCE (NORMAL) Platelet Estimate NORMAL (130-450,000) (NORMAL) Platelet Morphology NORMAL APPEARANCE (NORMAL) RBC Morph Micro Appear NORMAL APPEARANCE (NORMAL) PT (9.9-12.6) secs INR (0.8-1.2) APTT (24.9-33.3) secs VBG pH (7.31-7.41) Ionized Calcium (1.15-1.33) mmol/L Sodium 138 (135-145) mmol/L Potassium 3.0 L (3.5-5.0) mmol/L Chloride 104 (101-111) mmol/L Carbon Dioxide 18 L (21-32) mmol/L Anion Gap 16.0 H (6-13) BUN 32 H (6-20) mg/dL Creatinine 1.5 H (0.6-1.2) mg/dL Estimated GFR (MDRD) 46 L (>89) Glucose 124 H (70-100) mg/dL POC Whole Bld Glucose (70 - 100) mg/dL Lactic Acid (0.5-2.2) mmol/L Calcium 8.8 (8.5-10.3) mg/dL Phosphorus 3.6 (2.5-4.6) mg/dL Magnesium 1.7 (1.7-2.8) mg/dL Total Bilirubin (0.2-1.0) mg/dL AST (10-42) IU/L ALT (10-60) IU/L Alkaline Phosphatase (42-121) IU/L Troponin I High Sens 86.9 H* (2.3-19.7) ng/L B-Natriuretic Peptide (5-100) pg/mL Total Protein (6.7-8.2) g/dL Albumin (3.2-5.5) g/dL Globulin (2.1-4.2) g/dL Albumin/Globulin Ratio (1.0-2.2) Triglycerides ( - 149) mg/dL Cholesterol ( - 199) mg/dL LDL Cholesterol, Calc ( - 129) mg/dL VLDL Cholesterol mg/dL HDL Cholesterol (60 - ) mg/dL LDL/HDL Ratio (<3.6) Cholesterol/HDL Ratio (<5.0) TSH (0.34-5.60) uIU/mL Urine Color Urine Clarity (CLEAR) Urine pH (5.0-7.5) PH Ur Specific [place] (1.002-1.030) Urine Protein (NEGATIVE) mg/dL Urine Glucose (UA) (NEGATIVE) mg/dL Urine Ketones (NEGATIVE) mg/dL Urine Occult Blood (NEGATIVE) Urine Nitrite (NEGATIVE) Urine Bilirubin (NEGATIVE) Urine Urobilinogen (NORMAL) E.U./dL Ur Leukocyte Esterase (NEGATIVE) Urine RBC (0-5) /HPF Urine WBC (0-3) /HPF Ur Squamous Epith Cells (<= Few) Urine Bacteria (None Seen) /HPF Ur Microscopic Review Urine Culture Comments Nasal Adenovirus (PCR) Nasal B. parapertussis DNA (PCR) Nasal Coronavir 229E PCR Nasal Coronavir HKU1 PCR Nasal Coronavir NL63 PCR Nasal Coronavir OC43 PCR Nasal Enterovir/Rhinovir PCR Nasal Influenza B PCR Nasal Influenza A PCR Nasal Parainfluen 1 PCR Nasal Parainfluen 2 PCR Nasal Parainfluen 3 PCR Nasal Parainfluen 4 PCR Nasal RSV (PCR) Nasal Screen MRSA (PCR) (NEGATIVE) Nasal B.pertussis DNA PCR Nasal C.pneumoniae (PCR) [place] Human Metapneumo PCR Nasal M.pneumoniae (PCR) Nasal SARS-CoV-2 (PCR) Ethyl Alcohol mg/dL 05/21/21 05/21/21 05/21/21 Range/Units 21:20 21:03 19:51 WBC (4.8-10.8) x10^3/uL RBC (4.70-6.10) 10^6/uL Hgb (14.0-18.0) g/dL Hct (42.0-52.0) % MCV (80.0-94.0) fL MCH (27.0-31.0) pg MCHC (32.0-36.0) g/dL RDW (12.0-15.0) % Plt Count (130-450) 10^3/uL MPV (7.4-11.4) fL Neut # (Auto) Lymph # (Auto) [place] # (Auto) Eos # (Auto) Baso # (Auto) Absolute Nucleated RBC Total Counted Band Neuts % (Manual) (0 - 10) % Abnorm Lymph % (Manual) % Nucleated RBC % Neutrophils # (Manual) (1.5-6.6) 10^3/uL Lymphocytes # (Manual) (1.5-3.5) 10^3/uL Monocytes # (Manual) (0.0-1.0) 10^3/uL Eosinophils # (Manual) (0-0.7) 10^3/uL Basophils # (Manual) (0-0.1) 10^3/uL Differential Comment WBC Morphology (NORMAL) Platelet Estimate (NORMAL) Platelet Morphology (NORMAL) RBC Morph Micro Appear (NORMAL) PT (9.9-12.6) secs INR (0.8-1.2) APTT (24.9-33.3) secs VBG pH (7.31-7.41) Ionized Calcium (1.15-1.33) mmol/L Sodium (135-145) mmol/L Potassium (3.5-5.0) mmol/L Chloride (101-111) mmol/L Carbon Dioxide (21-32) mmol/L Anion Gap (6-13) BUN (6-20) mg/dL Creatinine (0.6-1.2) mg/dL Estimated GFR (MDRD) (>89) Glucose (70-100) mg/dL POC Whole Bld Glucose (70 - 100) mg/dL Lactic Acid 3.0 H* 4.3 H* (0.5-2.2) mmol/L Calcium (8.5-10.3) mg/dL Phosphorus (2.5-4.6) mg/dL Magnesium (1.7-2.8) mg/dL Total Bilirubin (0.2-1.0) mg/dL AST (10-42) IU/L ALT (10-60) IU/L Alkaline Phosphatase (42-121) IU/L Troponin I High Sens (2.3-19.7) ng/L B-Natriuretic Peptide (5-100) pg/mL Total Protein (6.7-8.2) g/dL Albumin (3.2-5.5) g/dL Globulin (2.1-4.2) g/dL Albumin/Globulin Ratio (1.0-2.2) Triglycerides ( - 149) mg/dL Cholesterol ( - 199) mg/dL LDL Cholesterol, Calc ( - 129) mg/dL VLDL Cholesterol mg/dL HDL Cholesterol (60 - ) mg/dL LDL/HDL Ratio (<3.6) Cholesterol/HDL Ratio (<5.0) TSH (0.34-5.60) uIU/mL Urine Color Urine Clarity (CLEAR) Urine pH (5.0-7.5) PH Ur Specific [place] (1.002-1.030) Urine Protein (NEGATIVE) mg/dL Urine Glucose (UA) (NEGATIVE) mg/dL Urine Ketones (NEGATIVE) mg/dL Urine Occult Blood (NEGATIVE) Urine Nitrite (NEGATIVE) Urine Bilirubin (NEGATIVE) Urine Urobilinogen (NORMAL) E.U./dL Ur Leukocyte Esterase (NEGATIVE) Urine RBC (0-5) /HPF Urine WBC (0-3) /HPF Ur Squamous Epith Cells (<= Few) Urine Bacteria (None Seen) /HPF Ur Microscopic Review Urine Culture Comments Nasal Adenovirus (PCR) Nasal B. parapertussis DNA (PCR) Nasal Coronavir 229E PCR Nasal Coronavir HKU1 PCR Nasal Coronavir NL63 PCR Nasal Coronavir OC43 PCR Nasal Enterovir/Rhinovir PCR Nasal Influenza B PCR Nasal Influenza A PCR Nasal Parainfluen 1 PCR Nasal Parainfluen 2 PCR Nasal Parainfluen 3 PCR Nasal Parainfluen 4 PCR Nasal RSV (PCR) Nasal Screen MRSA (PCR) NEGATIVE (NEGATIVE) Nasal B.pertussis DNA PCR Nasal C.pneumoniae (PCR) [place] Human Metapneumo PCR Nasal M.pneumoniae (PCR) Nasal SARS-CoV-2 (PCR) Ethyl Alcohol mg/dL 05/21/21 05/21/21 05/21/21 Range/Units 19:04 19:00 19:00 WBC (4.8-10.8) x10^3/uL RBC (4.70-6.10) 10^6/uL Hgb (14.0-18.0) g/dL Hct (42.0-52.0) % MCV (80.0-94.0) fL MCH (27.0-31.0) pg MCHC (32.0-36.0) g/dL RDW (12.0-15.0) % Plt Count (130-450) 10^3/uL MPV (7.4-11.4) fL Neut # (Auto) Lymph # (Auto) [place] # (Auto) Eos # (Auto) Baso # (Auto) Absolute Nucleated RBC Total Counted Band Neuts % (Manual) (0 - 10) % Abnorm Lymph % (Manual) % Nucleated RBC % Neutrophils # (Manual) (1.5-6.6) 10^3/uL Lymphocytes # (Manual) (1.5-3.5) 10^3/uL Monocytes # (Manual) (0.0-1.0) 10^3/uL Eosinophils # (Manual) (0-0.7) 10^3/uL Basophils # (Manual) (0-0.1) 10^3/uL Differential Comment WBC Morphology (NORMAL) Platelet Estimate (NORMAL) Platelet Morphology (NORMAL) RBC Morph Micro Appear (NORMAL) PT (9.9-12.6) secs INR (0.8-1.2) APTT (24.9-33.3) secs VBG pH (7.31-7.41) Ionized Calcium (1.15-1.33) mmol/L Sodium (135-145) mmol/L Potassium (3.5-5.0) mmol/L Chloride (101-111) mmol/L Carbon Dioxide (21-32) mmol/L Anion Gap (6-13) BUN (6-20) mg/dL Creatinine (0.6-1.2) mg/dL Estimated GFR (MDRD) (>89) Glucose (70-100) mg/dL POC Whole Bld Glucose (70 - 100) mg/dL Lactic Acid (0.5-2.2) mmol/L Calcium (8.5-10.3) mg/dL Phosphorus (2.5-4.6) mg/dL Magnesium (1.7-2.8) mg/dL Total Bilirubin (0.2-1.0) mg/dL AST (10-42) IU/L ALT (10-60) IU/L Alkaline Phosphatase (42-121) IU/L Troponin I High Sens (2.3-19.7) ng/L B-Natriuretic Peptide (5-100) pg/mL Total Protein (6.7-8.2) g/dL Albumin (3.2-5.5) g/dL Globulin (2.1-4.2) g/dL Albumin/Globulin Ratio (1.0-2.2) Triglycerides ( - 149) mg/dL Cholesterol ( - 199) mg/dL LDL Cholesterol, Calc ( - 129) mg/dL VLDL Cholesterol mg/dL HDL Cholesterol (60 - ) mg/dL LDL/HDL Ratio (<3.6) Cholesterol/HDL Ratio (<5.0) TSH (0.34-5.60) uIU/mL Urine Color YELLOW Urine Clarity CLOUDY (CLEAR) Urine pH 6.5 (5.0-7.5) PH Ur Specific [place] 1.015 (1.002-1.030) Urine Protein NEGATIVE (NEGATIVE) mg/dL Urine Glucose (UA) NEGATIVE (NEGATIVE) mg/dL Urine Ketones NEGATIVE (NEGATIVE) mg/dL Urine Occult Blood LARGE H (NEGATIVE) Urine Nitrite POSITIVE H (NEGATIVE) Urine Bilirubin NEGATIVE (NEGATIVE) Urine Urobilinogen 0.2 (NORMAL) (NORMAL) E.U./dL Ur Leukocyte Esterase TRACE H (NEGATIVE) Urine RBC TNTC H (0-5) /HPF Urine WBC >25 H (0-3) /HPF Ur Squamous Epith Cells NONE SEEN (<= Few) Urine Bacteria Many H (None Seen) /HPF Ur Microscopic Review INDICATED Urine Culture Comments INDICATED Nasal Adenovirus (PCR) NOT DETECTED Nasal B. parapertussis DNA (PCR) NOT DETECTED Nasal Coronavir 229E PCR NOT DETECTED Nasal Coronavir HKU1 PCR NOT DETECTED Nasal Coronavir NL63 PCR NOT DETECTED Nasal Coronavir OC43 PCR NOT DETECTED Nasal Enterovir/Rhinovir PCR NOT DETECTED Nasal Influenza B PCR NOT DETECTED Nasal Influenza A PCR NOT DETECTED Nasal Parainfluen 1 PCR NOT DETECTED Nasal Parainfluen 2 PCR NOT DETECTED Nasal Parainfluen 3 PCR NOT DETECTED Nasal Parainfluen 4 PCR NOT DETECTED Nasal RSV (PCR) NOT DETECTED Nasal Screen MRSA (PCR) (NEGATIVE) Nasal B.pertussis DNA PCR NOT DETECTED Nasal C.pneumoniae (PCR) NOT DETECTED [place] Human Metapneumo PCR NOT DETECTED Nasal M.pneumoniae (PCR) NOT DETECTED Nasal SARS-CoV-2 (PCR) NOT DETECTED Ethyl Alcohol < 5.0 mg/dL 05/21/21 05/21/21 05/21/21 Range/Units 18:06 18:06 18:06 WBC (4.8-10.8) x10^3/uL RBC (4.70-6.10) 10^6/uL Hgb (14.0-18.0) g/dL Hct (42.0-52.0) % MCV (80.0-94.0) fL MCH (27.0-31.0) pg MCHC (32.0-36.0) g/dL RDW (12.0-15.0) % Plt Count (130-450) 10^3/uL MPV (7.4-11.4) fL Neut # (Auto) Lymph # (Auto) [place] # (Auto) Eos # (Auto) Baso # (Auto) Absolute Nucleated RBC Total Counted Band Neuts % (Manual) (0 - 10) % Abnorm Lymph % (Manual) % Nucleated RBC % Neutrophils # (Manual) (1.5-6.6) 10^3/uL Lymphocytes # (Manual) (1.5-3.5) 10^3/uL Monocytes # (Manual) (0.0-1.0) 10^3/uL Eosinophils # (Manual) (0-0.7) 10^3/uL Basophils # (Manual) (0-0.1) 10^3/uL Differential Comment WBC Morphology (NORMAL) Platelet Estimate (NORMAL) Platelet Morphology (NORMAL) RBC Morph Micro Appear (NORMAL) PT (9.9-12.6) secs INR (0.8-1.2) APTT (24.9-33.3) secs VBG pH (7.31-7.41) Ionized Calcium (1.15-1.33) mmol/L Sodium 144 (135-145) mmol/L Potassium 3.7 (3.5-5.0) mmol/L Chloride 106 (101-111) mmol/L Carbon Dioxide 25 (21-32) mmol/L Anion Gap 13.0 (6-13) BUN 29 H (6-20) mg/dL Creatinine 1.2 (0.6-1.2) mg/dL Estimated GFR (MDRD) 59 L (>89) Glucose 98 (70-100) mg/dL POC Whole Bld Glucose (70 - 100) mg/dL Lactic Acid (0.5-2.2) mmol/L Calcium 9.9 (8.5-10.3) mg/dL Phosphorus (2.5-4.6) mg/dL Magnesium (1.7-2.8) mg/dL Total Bilirubin 1.0 (0.2-1.0) mg/dL AST 37 (10-42) IU/L ALT 55 (10-60) IU/L Alkaline Phosphatase 87 (42-121) IU/L Troponin I High Sens 53.2 H* (2.3-19.7) ng/L B-Natriuretic Peptide 286 H (5-100) pg/mL Total Protein 7.8 (6.7-8.2) g/dL Albumin 4.3 (3.2-5.5) g/dL Globulin 3.5 (2.1-4.2) g/dL Albumin/Globulin Ratio 1.2 (1.0-2.2) Triglycerides ( - 149) mg/dL Cholesterol ( - 199) mg/dL LDL Cholesterol, Calc ( - 129) mg/dL VLDL Cholesterol mg/dL HDL Cholesterol (60 - ) mg/dL LDL/HDL Ratio (<3.6) Cholesterol/HDL Ratio (<5.0) TSH (0.34-5.60) uIU/mL Urine Color Urine Clarity (CLEAR) Urine pH (5.0-7.5) PH Ur Specific [place] (1.002-1.030) Urine Protein (NEGATIVE) mg/dL Urine Glucose (UA) (NEGATIVE) mg/dL Urine Ketones (NEGATIVE) mg/dL Urine Occult Blood (NEGATIVE) Urine Nitrite (NEGATIVE) Urine Bilirubin (NEGATIVE) Urine Urobilinogen (NORMAL) E.U./dL Ur Leukocyte Esterase (NEGATIVE) Urine RBC (0-5) /HPF Urine WBC (0-3) /HPF Ur Squamous Epith Cells (<= Few) Urine Bacteria (None Seen) /HPF Ur Microscopic Review Urine Culture Comments Nasal Adenovirus (PCR) Nasal B. parapertussis DNA (PCR) Nasal Coronavir 229E PCR Nasal Coronavir HKU1 PCR Nasal Coronavir NL63 PCR Nasal Coronavir OC43 PCR Nasal Enterovir/Rhinovir PCR Nasal Influenza B PCR Nasal Influenza A PCR Nasal Parainfluen 1 PCR Nasal Parainfluen 2 PCR Nasal Parainfluen 3 PCR Nasal Parainfluen 4 PCR Nasal RSV (PCR) Nasal Screen MRSA (PCR) (NEGATIVE) Nasal B.pertussis DNA PCR Nasal C.pneumoniae (PCR) Russell Human Metapneumo PCR Nasal M.pneumoniae (PCR) Nasal SARS-CoV-2 (PCR) Ethyl Alcohol mg/dL 05/21/21 05/21/21 05/21/21 Range/Units 18:06 18:06 18:04 WBC 7.1 (4.8-10.8) x10^3/uL RBC 5.96 (4.70-6.10) 10^6/uL Hgb 17.6 (14.0-18.0) g/dL Hct 51.8 (42.0-52.0) % MCV 86.9 (80.0-94.0) fL MCH 29.5 (27.0-31.0) pg MCHC 34.0 (32.0-36.0) g/dL RDW 12.7 (12.0-15.0) % Plt Count 241 (130-450) 10^3/uL MPV 9.7 (7.4-11.4) fL Neut # (Auto) Not Reportable Lymph # (Auto) Not Reportable [place] # (Auto) Not Reportable Eos # (Auto) Not Reportable Baso # (Auto) Not Reportable Absolute Nucleated RBC Not Reportable Total Counted 100 Band Neuts % (Manual) 31 H (0 - 10) % Abnorm Lymph % (Manual) 0 % Nucleated RBC % Not Reportable Neutrophils # (Manual) 6.1 (1.5-6.6) 10^3/uL Lymphocytes # (Manual) 0.9 L (1.5-3.5) 10^3/uL Monocytes # (Manual) 0.0 (0.0-1.0) 10^3/uL Eosinophils # (Manual) 0.1 (0-0.7) 10^3/uL Basophils # (Manual) 0.0 (0-0.1) 10^3/uL Differential Comment MANUAL DIFFERENTIAL WBC Morphology (NORMAL) Platelet Estimate NORMAL (130-450,000) (NORMAL) Platelet Morphology 1+ LARGE PLATELETS (NORMAL) RBC Morph Micro Appear NORMAL APPEARANCE (NORMAL) PT 13.8 H (9.9-12.6) secs INR 1.2 (0.8-1.2) APTT 28.3 (24.9-33.3) secs VBG pH (7.31-7.41) Ionized Calcium (1.15-1.33) mmol/L Sodium (135-145) mmol/L Potassium (3.5-5.0) mmol/L Chloride (101-111) mmol/L Carbon Dioxide (21-32) mmol/L Anion Gap (6-13) BUN (6-20) mg/dL Creatinine (0.6-1.2) mg/dL Estimated GFR (MDRD) (>89) Glucose (70-100) mg/dL POC Whole Bld Glucose 82 (70 - 100) mg/dL Lactic Acid (0.5-2.2) mmol/L Calcium (8.5-10.3) mg/dL Phosphorus (2.5-4.6) mg/dL Magnesium (1.7-2.8) mg/dL Total Bilirubin (0.2-1.0) mg/dL AST (10-42) IU/L ALT (10-60) IU/L Alkaline Phosphatase (42-121) IU/L Troponin I High Sens (2.3-19.7) ng/L B-Natriuretic Peptide (5-100) pg/mL Total Protein (6.7-8.2) g/dL Albumin (3.2-5.5) g/dL Globulin (2.1-4.2) g/dL Albumin/Globulin Ratio (1.0-2.2) Triglycerides ( - 149) mg/dL Cholesterol ( - 199) mg/dL LDL Cholesterol, Calc ( - 129) mg/dL VLDL Cholesterol mg/dL HDL Cholesterol (60 - ) mg/dL LDL/HDL Ratio (<3.6) Cholesterol/HDL Ratio (<5.0) TSH (0.34-5.60) uIU/mL Urine Color Urine Clarity (CLEAR) Urine pH (5.0-7.5) PH Ur Specific [place] (1.002-1.030) Urine Protein (NEGATIVE) mg/dL Urine Glucose (UA) (NEGATIVE) mg/dL Urine Ketones (NEGATIVE) mg/dL Urine Occult Blood (NEGATIVE) Urine Nitrite (NEGATIVE) Urine Bilirubin (NEGATIVE) Urine Urobilinogen (NORMAL) E.U./dL Ur Leukocyte Esterase (NEGATIVE) Urine RBC (0-5) /HPF Urine WBC (0-3) /HPF Ur Squamous Epith Cells (<= Few) Urine Bacteria (None Seen) /HPF Ur Microscopic Review Urine Culture Comments Nasal Adenovirus (PCR) Nasal B. parapertussis DNA (PCR) Nasal Coronavir 229E PCR Nasal Coronavir HKU1 PCR Nasal Coronavir NL63 PCR Nasal Coronavir OC43 PCR Nasal Enterovir/Rhinovir PCR Nasal Influenza B PCR Nasal Influenza A PCR Nasal Parainfluen 1 PCR Nasal Parainfluen 2 PCR Nasal Parainfluen 3 PCR Nasal Parainfluen 4 PCR Nasal RSV (PCR) Nasal Screen MRSA (PCR) (NEGATIVE) Nasal B.pertussis DNA PCR Nasal C.pneumoniae (PCR) Russell Human Metapneumo PCR Nasal M.pneumoniae (PCR) Nasal SARS-CoV-2 (PCR) Ethyl Alcohol mg/dL Sepsis Event Note (H) - Evaluation Current Stage of Sepsis: Severe sepsis Possible source of Sepsis: positive: Pulmonary, Genitourinary - Sepsis Criteria Sepsis Criteria: Recorded Temperature greater than 38.3C or Less than 36C, Recorded Heart Rate greater than 90 bpm, WBC count greater than 10% bands, WBC count greater than 12,000 or less than 4000, Renal: urine output less than 0.5ml/kg/hr for 2 hours or creatinine gr, Metabolic: lactate > 2 mmol/L Assessment/Plan - Problem List (1) Severe sepsis Impression: The concern is for sepsis secondary to urinary tract infection. His white count today is over 50,000 and he was febrile yesterday evening. His urinalysis suggests infection and imaging was concerning for bladder outlet obstruction due to his prostatomegaly. We will broaden his antibiotics today to vancomycin and cefepime IV. Initial blood cultures are growing gram-negative rods. If he continues to show improvement over next 24 hours then we will discontinue the vancomycin. His lactic acid is still elevated so we will recheck this and if it is still elevated we will give him further IV fluids although this will need to be done judiciously given concern for heart failure as well. Daily CBC. (2) Acute HFrEF (heart failure with reduced ejection fraction) Impression: The concern is for acute heart failure given his hypoxia and now elevated BNP of 1300 this morning. His x-ray suggested edema or pneumonia. He was being diuresed but given he is septic with a rising lactic acid, we have discontinued Lasix. Preliminary echocardiogram suggested an ejection fraction of 20%. I do not believe he is in cardiogenic shock and that the elevated lactic acid is due to sepsis. We will hold off on further diuresis and we will trial a liter of lactated Ringer's over 2 hours. We will monitor his respiratory status closely and I suspect he will need diuresis at some point. We will hold off on diuresis and appropriate heart failure therapy at this time. We will follow up the ec hocardiogram report today. We will start him on appropriate heart failure therapy over the next few days. We will look to start diuresis as soon as we can which I anticipate will hopefully be the next 24 hours or so. (3) Cerebrovascular accident (CVA) Impression: There was initial concern for stroke given he had right arm and lower extremity deficit. His symptoms had resolved in the emergency department and so he was not administered TPA. Initial CT was concerning for small hypodensity in the left cote radiata which may be an acute or subacute infarct. He has been started on aspirin as well as statin. We have ordered an MRI for today. Holding off on anticoagulation given atrial fibrillation until the MRI is obtained to see if there was an infarct or not. Continue neurochecks. (4) UTI (urinary tract infection) Impression: The concern is that this is the cause of his sepsis. The urinalysis suggests infection and blood culture growing gram-negative rods. We have broaden his antibiotics today to vancomycin and cefepime. Follow-up cultures. (5) Atrial fibrillation with RVR Impression: He developed atrial fibrillation with rapid ventricular response overnight and was started on a diltiazem drip. Preliminary echocardiogram suggested ejection fraction of around 20%. He is now rate controlled on the diltiazem drip and we will transition to oral diltiazem today. We are holding off on anticoagulation given concern for potential stroke until the MRI is obtained. If MRI shows no evidence of stroke with no we can start him on anticoagulation. If there is evidence of an infarct then the size of it we will determine when we can start anticoagulation. Continue to monitor on telemetry. (6) Acute kidney injury Impression: His creatinine is increased today to 1.5 compared to 1.2 on admission. Suspect this may be related to the sepsis and less likely to be cardiorenal syndrome. We will hold off on further Lasix given a liter of lactated Ringer's over 2 hours. We will also look to gently hydrate him. He will most likely need to be diuresed at some point but this will need to be delayed given the sepsis. We will discontinue lisinopril and spironolactone at this time as well. We will resume appropriate heart failure therapy once his renal function is stable. (7) Esophageal mass Impression: CT of the chest was concerning for an esophageal mass with suspected metastatic disease. He will need endoscopy and we can consider this on an inpatient basis once he improves from a sepsis and heart failure standpoint. (8) BPH (benign prostatic hyperplasia) Impression: Concern was for bladder outlet obstruction secondary to prostatomegaly. A Valdovinos catheter has since been placed. He does have hematuria associated the catheter placement but his hemoglobin is stable and does not appear to be significant hematuria. We will continue to monitor. We will start him on Flomax as well.
[2021-05-22] MEDS ORDERED: POTASSIUM CHLORIDE 20 MEQ TABLET PO SCH (08:00)
[2021-05-22] MEDS ORDERED: CEFEPIME 2 GM in SODIUM CHLORIDE 0.9% MINIBAG 100 ML IV SCH ×2 (08:00→21:00)
[2021-05-22] MEDS ORDERED: LACTATED RINGERS 1,000 ML IV ONE ×2 (08:43→11:20)
[2021-05-22] MEDS ORDERED: SPIRONOLACTONE 25 MG TABLET PO SCH (09:00)
[2021-05-22] MEDS ORDERED: VANCOMYCIN INJ 2 GM, VANCOMYCIN INJ 250 MG in SODIUM CHLORIDE 0.9% 500 ML IV ONE (09:00)
[2021-05-22] MEDS ORDERED: lisinopriL 5 MG TABLET PO SCH (09:00)
[2021-05-22] MEDS: METOPROLOL TARTRATE 25 MG TABLET PO SCH ×3 (09:02→17:06)
[2021-05-22] MEDS: ASPIRIN EC 81 MG TABLET PO SCH (09:03)
[2021-05-22] MEDS: ACETAMINOPHEN 325 MG TABLET PO PRN ×2 (09:31→16:00)
[2021-05-22] MEDS: ENOXAPARIN 40 MG/0.4 ML SYRINGE SUBQ SCH (09:46)
[2021-05-22] MEDS: diltiaZEM 30 MG TABLET PO SCH ×3 (12:16→23:47)
--- NOTE | 2021-05-22 13:08 | PHARMACY PROGRESS NOTE ---
- Therapy Status Vancomycin regimen day #: 1 Therapy status: Awaiting steady state Basis for treatment: Empirical Treatment indication: SEPSIS Trough goal: 15-20 Concurrent antibiotics: CEFEPIME - VENKATESH Risk Risk level for Acute Kidney Injury: Moderate Acute Kidney Injury risk factors: Baseline CrCl <50, IV contrast within 72 hrs, Goal trough >15, Chronic baseline hypertension, Admission to ICU, Sepsis - Monitoring and Recommendation Clinical response to treatment: I&O Previous 24 hours 05/20/21 05/21/21 05/22/21 23:59 23:59 23:59 Intake Total 795.593 2295.000 Output Total 1530 950 Balance -165.973 3683.000 Lab Results 05/22/21 05/21/21 04:10 18:06 BUN 32 H 29 H Creatinine 1.5 H 1.2 Estimated GFR (MDRD) 46 L 59 L Cultures 05/21/21 19:51 Blood - Left Hand Blood Culture - Preliminary 05/21/21 19:51 Blood - Left Hand Blood Culture (PCR) - Final Monitoring plan: Daily serum creatinine, Draw trough early, Suggest ongoing fluid replacement Next trough due prior to maintenance dose #: 3 Next trough due (date/time): 05/25/21 @ 0900 Areas for additional monitoring: IV to PO when appropriate, Therapy de-escala tion based on culture results, Acute Kidney Injury Pharmacy recommendation: Continue current regime
[2021-05-22 13:16] LABS: CALCIUM, IONIZED 1.08 mmol/L (1.15-1.33); VBG PH 7.431 (7.31-7.41)
[2021-05-22 13:19] LABS: MAGNESIUM 1.7 mg/dL (1.7-2.8); POTASSIUM 4.4 mmol/L (3.5-5.0)
[2021-05-22 14:05] LABS: EOSINOPHILS % (AUTO) 0.5 %; HCT - HEMATOCRIT 41.5 % (42.0-52.0); HGB - HEMOGLOBIN 14.1 g/dL (14.0-18.0); LYMPHOCYTES % (AUTO) 1.7 %; MEAN CORPUSCULAR HEMOGLOBIN 29.6 pg (27.0-31.0); MEAN CORPUSCULAR VOLUME 87.2 fL (80.0-94.0); MEAN PLATELET VOLUME 10.3 fL (7.4-11.4); MONOCYTES % (AUTO) 1.9 %; NEUTROPHILS % (AUTO) 93.3 %; PLT - PLATELET COUNT 193 10^3/uL (130-450); RED BLOOD COUNT 4.76 10^6/uL (4.70-6.10); RED CELL DISTRIBUTION WIDTH 13.2 % (12.0-15.0)
[2021-05-22 14:08] LABS: WHITE BLOOD COUNT 55.4 x10^3/uL (4.8-10.8)
[2021-05-22 14:09] LABS: SLIDE REVIEW? Indicated
[2021-05-22 14:12] LABS: CALCIUM 8.2 mg/dL (8.5-10.3); CREATININE 1.8 mg/dL (0.6-1.2); POTASSIUM 4.3 mmol/L (3.5-5.0)
[2021-05-22 14:24] LABS: ABNORMAL LYMPHS % (MANUAL) 0 %
[2021-05-22 14:25] LABS: BAND NEUTROPHILS % (MANUAL) 4 %; DIFFERENTIAL COMMENT MANUAL DIFFERENTIAL; LYMPHOCYTES # (MANUAL) 1.1 10^3/uL (1.5-3.5); LYMPHOCYTES % (MANUAL) 2 %; MONOCYTES # (MANUAL) 1.1 10^3/uL (0.0-1.0); NEUTROPHILS # (MANUAL) 53.2 10^3/uL (1.5-6.6); PLATELET ESTIMATE, MANUAL NORMAL (130-450,000) (NORMAL); PLATELET MORPHOLOGY NORMAL APPEARANCE (NORMAL); RBC MORPHOLOGY (MULTIPLE) NORMAL APPEARANCE (NORMAL)
[2021-05-22] MEDS: LACTATED RINGERS 1,000 ML IV SCH (16:59)
[2021-05-22 17:08] LABS: VBG PH 7.437 (7.31-7.41)
[2021-05-22 17:09] LABS: CALCIUM, IONIZED 1.11 mmol/L (1.15-1.33)
[2021-05-22] MEDS ORDERED: levoFLOXacin 750 MG/150 ML 750 MG/150 ML BAG IV SCH (18:00)
[2021-05-22] MEDS: ATORVASTATIN 40 MG TABLET PO SCH (20:47)
[2021-05-22] MEDS: TAMSULOSIN 0.4 MG CAPSULE PO SCH (20:47)
[2021-05-22] MEDS: diltiaZEM INJ 125 MG in DEXTROSE 5% 100 ML IV SCH (23:09)
[2021-05-23] MEDS: LACTATED RINGERS 1,000 ML IV SCH ×3 (01:06→20:25)
[2021-05-23] MEDS: NITROGLYCERIN 2% PASTE TOP SCH ×3 (01:17→16:34)
[2021-05-23] MEDS: SODIUM CHLORIDE FLUSH 0.9% 10 ML SYRINGE IVP SCH ×3 (01:18→17:18)
[2021-05-23 04:31] LABS: BASOPHILS % (AUTO) 0.2 %; CALCIUM, IONIZED 1.11 mmol/L (1.15-1.33); EOSINOPHILS % (AUTO) 0.1 %; HCT - HEMATOCRIT 36.6 % (42.0-52.0); HGB - HEMOGLOBIN 12.6 g/dL (14.0-18.0); LYMPHOCYTES % (AUTO) 3.7 %; MEAN CORPUSCULAR HEMOGLOBIN 29.8 pg (27.0-31.0); MEAN CORPUSCULAR HGB CONC 34.4 g/dL (32.0-36.0); MEAN CORPUSCULAR VOLUME 86.5 fL (80.0-94.0); MEAN PLATELET VOLUME 10.8 fL (7.4-11.4); NEUTROPHILS % (AUTO) 91.2 %; PLT - PLATELET COUNT 140 10^3/uL (130-450); RED BLOOD COUNT 4.23 10^6/uL (4.70-6.10); RED CELL DISTRIBUTION WIDTH 13.3 % (12.0-15.0); VBG PH 7.444 (7.31-7.41)
[2021-05-23 04:42] LABS: WHITE BLOOD COUNT 37.7 x10^3/uL (4.8-10.8)
[2021-05-23 04:44] LABS: ABNORMAL LYMPHS % (MANUAL) 0 %
[2021-05-23 04:45] LABS: CREATININE 1.4 mg/dL (0.6-1.2); CRP - C-REACTIVE PROTEIN 15.4 mg/dL (0-1.0); POTASSIUM 3.5 mmol/L (3.5-5.0)
[2021-05-23 04:59] LABS: BAND NEUTROPHILS % (MANUAL) 15 %; BASOPHILS # (MANUAL) 0.4 10^3/uL (0-0.1); BASOPHILS % (MANUAL) 1 %; LYMPHOCYTES # (MANUAL) 1.1 10^3/uL (1.5-3.5); LYMPHOCYTES % (MANUAL) 3 %; MONOCYTES # (MANUAL) 1.5 10^3/uL (0.0-1.0); NEUTROPHILS # (MANUAL) 34.7 10^3/uL (1.5-6.6)
[2021-05-23 05:00] LABS: DIFFERENTIAL COMMENT MANUAL DIFFERENTIAL; PLATELET ESTIMATE, MANUAL NORMAL (130-450,000) (NORMAL); RBC MORPHOLOGY (MULTIPLE) NORMAL APPEARANCE (NORMAL)
[2021-05-23] MEDS: diltiaZEM 30 MG TABLET PO SCH (06:02)
[2021-05-23] MEDS: CALCIUM CARBONATE CHEW 500 MG TABLET PO SCH ×2 (06:03→10:48)
--- NOTE | 2021-05-23 07:35 | PROVIDER PROGRESS NOTE ---
Subjective - Prog Note Date Prog Note Date: 05/23/21 - Subjective Subjective: Feels much better overall. Does not really feel short of breath today. He feels weak with fine motor movements in the right upper extremity. Current Medications - Current Medications Current Medications: Active Medications Acetaminophen (Acetaminophen 325 Mg Tablet) 650 mg PO Q4HR PRN PRN Reason: Pain or Fever > 38C (100.4F) Last Admin: 05/22/21 16:00 Dose: 650 mg Aspirin (Aspirin Ec 81 Mg Tablet) 81 mg PO DAILY [facility] Last Admin: 05/22/21 09:03 Dose: 81 mg Atorvastatin Calcium (Atorvastatin 40 Mg Tablet) 80 mg PO QPM [facility] Last Admin: 05/22/21 20:47 Dose: 80 mg Calcium Carbonate/Glycine (Calcium Carbonate Chew 500 Mg Tablet) 1,250 mg PO Q4H [facility]; Protocol Stop: 05/23/21 10:01 Last Admin: 05/23/21 06:03 Dose: 1,250 mg Diltiazem HCl (Diltiazem Cd 120 Mg Capsule) 120 mg PO DAILY [facility] Enoxaparin Sodium (Enoxaparin 40 Mg/0.4 Ml Syringe) 40 mg SUBQ DAILY [facility] Last Admin: 05/22/21 09:46 Dose: 40 mg Lactated Ringer's (Lr) 1,000 mls @ 125 mls/hr IV .Q8H [facility] Last Admin: 05/23/21 01:06 Dose: 125 mls/hr Ceftriaxone Sodium 1 gm/ (Sodium Chloride) 100 mls @ 200 mls/hr IV DAILY [facility] Levalbuterol HCl (Levalbuterol 1.25 Mg/3 Ml Neb) 1.25 mg INH Q4H PRN PRN Reason: Shortness of Air/Wheezing Metoprolol Tartrate (Metoprolol Tartrate 25 Mg Tablet) 25 mg PO TIDWM [facility] Last Admin: 05/22/21 17:06 Dose: 25 mg Morphine Sulfate (Morphine 2 Mg/Ml Carpuject) 2 mg IVP Q6HR PRN PRN Reason: Dyspnea Nitroglycerin (Nitroglycerin 2% Paste) 0.5 inch TOP Q8H [facility] Last Admin: 05/23/21 01:17 Dose: 0.5 inch Ondansetron HCl (Ondansetron 4 Mg/2 Ml Vial) 4 mg IVP Q6HR PRN PRN Reason: Nausea / Vomiting Potassium Chloride (Potassium Chloride 20 Meq Tablet) 20 meq PO Q2H TOMMY; Protoc ol Stop: 05/23/21 10:01 Sodium Chloride (Sodium Chloride Flush 0.9% 10 Ml Syringe) 10 ml IVP 0100, 0900,1700 [facility] Last Admin: 05/23/21 01:18 Dose: 10 ml Sodium Chloride (Sodium Chloride Flush 0.9% 10 Ml Syringe) 10 ml IVP PRN PRN PRN Reason: NEEDED PER PROVIDER ORDERS Last Admin: 05/22/21 14:59 Dose: 10 ml Tamsulosin HCl (Tamsulosin 0.4 Mg Capsule) 0.4 mg PO HS [facility] Last Admin: 05/22/21 20:47 Dose: 0.4 mg No Known Home Medications 03/29/16 Objective - Vital Signs/Intake & Output Reviewed Vital Signs: Yes Vital Signs: Vital Signs Temp Pulse Resp BP BP Pulse Ox 05/23/21 07:06 88 22 147/77 H 94 05/23/21 06:02 127/62 05/23/21 06:00 94 20 127/62 92 05/23/21 05:00 36.8 C 79 21 111/56 L 94 05/23/21 04:00 36.8 C 83 23 104/81 H 90 L Intake & Output: Intake & Output 05/20/21 05/21/21 05/22/21 05/23/21 23:59 23:59 23:59 23:59 Intake Total 650.132 7600.000 950 Output Total 1530 1334 668 Balance -924.107 9890.000 282 - Objective General Appearance: positive: No acute distress, Alert Eyes Bilateral: positive: Normal inspection, Conjunctivae nml ENT: positive: ENT inspection nml Respiratory: positive: No respiratory distress, Wheezes (Faint expiratory wheezes). negative: Rales Cardiovascular: positive: Irregularly irregular. negative: Tachycardia, Systolic murmur Abdomen: positive: Non-tender, No distention. negative: Tenderness Skin: positive: Warm, Cyanosis Extremities: positive: No pedal edema Neurologic/Psychiatric: positive: Other (Abnormal normal joylrg-vl-zoil test in the right upper extremity. Motor strength is grossly 5 out of 5 in all 4 extremities.). negative: Disoriented to person, Disoriented to place, Disoriented to time, Sensory loss, Facial droop, Slurred/abnml speech - Lab Results Fish Bones: 05/23/21 04:19 05/23/21 04:19 Other Labs: Lab Results x24hrs 05/23/21 05/23/21 05/23/21 Range/Units 04:19 04:19 04:19 WBC (4.8-10.8) x10^3/uL RBC (4.70-6.10) 10^6/uL Hgb (14.0-18.0) g/dL Hct (42.0-52.0) % MCV (80.0-94.0) fL MCH (27.0-31.0) pg MCHC (32.0-36.0) g/dL RDW (12.0-15.0) % Plt Count (130-450) 10^3/uL MPV (7.4-11.4) fL Neut # (Auto) Lymph # (Auto) Swift # (Auto) Eos # (Auto) Baso # (Auto) Absolute Nucleated RBC Total Counted Band Neuts % (Manual) (0 - 10) % Abnorm Lymph % (Manual) % Nucleated RBC % Neutrophils # (Manual) (1.5-6.6) 10^3/uL Lymphocytes # (Manual) (1.5-3.5) 10^3/uL Monocytes # (Manual) (0.0-1.0) 10^3/uL Eosinophils # (Manual) (0-0.7) 10^3/uL Basophils # (Manual) (0-0.1) 10^3/uL Differential Comment Manual Slide Review Platelet Estimate (NORMAL) Platelet Morphology (NORMAL) RBC Morph Micro Appear (NORMAL) VBG pH 7.444 H (7.31-7.41) Ionized Calcium 1.11 L (1.15-1.33) mmol/L Sodium (135-145) mmol/L Potassium (3.5-5.0) mmol/L Chloride (101-111) mmol/L Carbon Dioxide (21-32) mmol/L Anion Gap (6-13) BUN (6-20) mg/dL Creatinine (0.6-1.2) mg/dL Estimated GFR (MDRD) (>89) Glucose (70-100) mg/dL Lactic Acid (0.5-2.2) mmol/L Calcium (8.5-10.3) mg/dL Phosphorus 2.6 (2.5-4.6) mg/dL Magnesium (1.7-2.8) mg/dL C-Reactive Protein (0-1.0) mg/dL B-Natriuretic Peptide 168 H (5-100) pg/mL 05/23/21 05/23/21 05/22/21 Range/Units 04:19 04:19 20:00 WBC 37.7 H* (4.8-10.8) x10^3/uL RBC 4.23 L (4.70-6.10) 10^6/uL Hgb 12.6 L (14.0-18.0) g/dL Hct 36.6 L (42.0-52.0) % MCV 86.5 (80.0-94.0) fL MCH 29.8 (27.0-31.0) pg MCHC 34.4 (32.0-36.0) g/dL RDW 13.3 (12.0-15.0) % Plt Count 140 (130-450) 10^3/uL MPV 10.8 (7.4-11.4) fL Neut # (Auto) Not Reportable Lymph # (Auto) Not Reportable Swift # (Auto) Not Reportable Eos # (Auto) Not Reportable Baso # (Auto) Not Reportable Absolute Nucleated RBC Not Reportable Total Counted 100 Band Neuts % (Manual) 15 H (0 - 10) % Abnorm Lymph % (Manual) 0 % Nucleated RBC % Not Reportable Neutrophils # (Manual) 34.7 H (1.5-6.6) 10^3/uL Lymphocytes # (Manual) 1.1 L (1.5-3.5) 10^3/uL Monocytes # (Manual) 1.5 H (0.0-1.0) 10^3/uL Eosinophils # (Manual) 0.0 (0-0.7) 10^3/uL Basophils # (Manual) 0.4 H (0-0.1) 10^3/uL Differential Comment MANUAL DIFFERENTIAL Manual Slide Review Platelet Estimate NORMAL (130-450,000) (NORMAL) Platelet Morphology (NORMAL) RBC Morph Micro Appear NORMAL APPEARANCE (NORMAL) VBG pH (7.31-7.41) Ionized Calcium (1.15-1.33) mmol/L Sodium 136 (135-145) mmol/L Potassium 3.5 (3.5-5.0) mmol/L Chloride 103 (101-111) mmol/L Carbon Dioxide 23 (21-32) mmol/L Anion Gap 10.0 (6-13) BUN 36 H (6-20) mg/dL Creatinine 1.4 H (0.6-1.2) mg/dL Estimated GFR (MDRD) 50 L (>89) Glucose 98 (70-100) mg/dL Lactic Acid 1.8 (0.5-2.2) mmol/L Calcium 8.0 L (8.5-10.3) mg/dL Phosphorus (2.5-4.6) mg/dL Magnesium 2.0 (1.7-2.8) mg/dL C-Reactive Protein 15.4 H (0-1.0) mg/dL B-Natriuretic Peptide (5-100) pg/mL 05/22/21 05/22/21 05/22/21 Range/Units 17:01 17:01 13:52 WBC (4.8-10.8) x10^3/uL RBC (4.70-6.10) 10^6/uL Hgb (14.0-18.0) g/dL Hct (42.0-52.0) % MCV (80.0-94.0) fL MCH (27.0-31.0) pg MCHC (32.0-36.0) g/dL RDW (12.0-15.0) % Plt Count (130-450) 10^3/uL MPV (7.4-11.4) fL Neut # (Auto) Lymph # (Auto) Swift # (Auto) Eos # (Auto) Baso # (Auto) Absolute Nucleated RBC Total Counted Band Neuts % (Manual) (0 - 10) % Abnorm Lymph % (Manual) % Nucleated RBC % Neutrophils # (Manual) (1.5-6.6) 10^3/uL Lymphocytes # (Manual) (1.5-3.5) 10^3/uL Monocytes # (Manual) (0.0-1.0) 10^3/uL Eosinophils # (Manual) (0-0.7) 10^3/uL Basophils # (Manual) (0-0.1) 10^3/uL Differential Comment Manual Slide Review Platelet Estimate (NORMAL) Platelet Morphology (NORMAL) RBC Morph Micro Appear (NORMAL) VBG pH 7.437 H (7.31-7.41) Ionized Calcium 1.11 L (1.15-1.33) mmol/L Sodium (135-145) mmol/L Potassium (3.5-5.0) mmol/L Chloride (101-111) mmol/L Carbon Dioxide (21-32) mmol/L Anion Gap (6-13) BUN (6-20) mg/dL Creatinine (0.6-1.2) mg/dL Estimated GFR (MDRD) (>89) Glucose (70-100) mg/dL Lactic Acid 2.9 H 4.7 H* (0.5-2.2) mmol/L Calcium (8.5-10.3) mg/dL Phosphorus (2.5-4.6) mg/dL Magnesium (1.7-2.8) mg/dL C-Reactive Protein (0-1.0) mg/dL B-Natriuretic Peptide (5-100) pg/mL 05/22/21 05/22/21 05/22/21 Range/Units 13:52 13:52 12:58 WBC 55.4 H* (4.8-10.8) x10^3/uL RBC 4.76 (4.70-6.10) 10^6/uL Hgb 14.1 (14.0-18.0) g/dL Hct 41.5 L (42.0-52.0) % MCV 87.2 (80.0-94.0) fL MCH 29.6 (27.0-31.0) pg MCHC 34.0 (32.0-36.0) g/dL RDW 13.2 (12.0-15.0) % Plt Count 193 (130-450) 10^3/uL MPV 10.3 (7.4-11.4) fL Neut # (Auto) Not Reportable Lymph # (Auto) Not Reportable Swift # (Auto) Not Reportable Eos # (Auto) Not Reportable Baso # (Auto) Not Reportable Absolute Nucleated RBC Not Reportable Total Counted 100 Band Neuts % (Manual) 4 (0 - 10) % Abnorm Lymph % (Manual) 0 % Nucleated RBC % Not Reportable Neutrophils # (Manual) 53.2 H (1.5-6.6) 10^3/uL Lymphocytes # (Manual) 1.1 L (1.5-3.5) 10^3/uL Monocytes # (Manual) 1.1 H (0.0-1.0) 10^3/uL Eosinophils # (Manual) 0.0 (0-0.7) 10^3/uL Basophils # (Manual) 0.0 (0-0.1) 10^3/uL Differential Comment MANUAL DIFFERENTIAL Manual Slide Review Indicated Platelet Estimate NORMAL (130-450,000) (NORMAL) Platelet Morphology NORMAL APPEARANCE (NORMAL) RBC Morph Micro Appear NORMAL APPEARANCE (NORMAL) VBG pH 7.431 H (7.31-7.41) Ionized Calcium 1.08 L (1.15-1.33) mmol/L Sodium 134 L (135-145) mmol/L Potassium 4.3 (3.5-5.0) mmol/L Chloride 101 (101-111) mmol/L Carbon Dioxide 21 (21-32) mmol/L Anion Gap 12.0 (6-13) BUN 35 H (6-20) mg/dL Creatinine 1.8 H (0.6-1.2) mg/dL Estimated GFR (MDRD) 37 L (>89) Glucose 124 H (70-100) mg/dL Lactic Acid (0.5-2.2) mmol/L Calcium 8.2 L (8.5-10.3) mg/dL Phosphorus (2.5-4.6) mg/dL Magnesium (1.7-2.8) mg/dL C-Reactive Protein (0-1.0) mg/dL B-Natriuretic Peptide (5-100) pg/mL 05/22/21 05/22/21 05/22/21 Range/Units 12:58 10:29 07:55 WBC (4.8-10.8) x10^3/uL RBC (4.70-6.10) 10^6/uL Hgb (14.0-18.0) g/dL Hct (42.0-52.0) % MCV (80.0-94.0) fL MCH (27.0-31.0) pg MCHC (32.0-36.0) g/dL RDW (12.0-15.0) % Plt Count (130-450) 10^3/uL MPV (7.4-11.4) fL Neut # (Auto) Lymph # (Auto) Swift # (Auto) Eos # (Auto) Baso # (Auto) Absolute Nucleated RBC Total Counted Band Neuts % (Manual) (0 - 10) % Abnorm Lymph % (Manual) % Nucleated RBC % Neutrophils # (Manual) (1.5-6.6) 10^3/uL Lymphocytes # (Manual) (1.5-3.5) 10^3/uL Monocytes # (Manual) (0.0-1.0) 10^3/uL Eosinophils # (Manual) (0-0.7) 10^3/uL Basophils # (Manual) (0-0.1) 10^3/uL Differential Comment Manual Slide Review Platelet Estimate (NORMAL) Platelet Morphology (NORMAL) RBC Morph Micro Appear (NORMAL) VBG pH (7.31-7.41) Ionized Calcium (1.15-1.33) mmol/L Sodium (135-145) mmol/L Potassium 4.4 (3.5-5.0) mmol/L Chloride (101-111) mmol/L Carbon Dioxide (21-32) mmol/L Anion Gap (6-13) BUN (6-20) mg/dL Creatinine (0.6-1.2) mg/dL Estimated GFR (MDRD) (>89) Glucose (70-100) mg/dL Lactic Acid 4.5 H* 3.6 H* (0.5-2.2) mmol/L Calcium (8.5-10.3) mg/dL Phosphorus (2.5-4.6) mg/dL Magnesium 1.7 (1.7-2.8) mg/dL C-Reactive Protein (0-1.0) mg/dL B-Natriuretic Peptide (5-100) pg/mL Sepsis Event Note (H) - Evaluation Current Stage of Sepsis: Severe sepsis Possible source of Sepsis: positive: Pulmonary, Genitourinary - Sepsis Criteria Sepsis Criteria: Recorded Temperature greater than 38.3C or Less than 36C, Recorded Heart Rate greater than 90 bpm, WBC count greater than 10% bands, WBC count greater than 12,000 or less than 4000, Renal: urine output less than 0.5ml/kg/hr for 2 hours or creatinine gr, Metabolic: lactate > 2 mmol/L Assessment/Plan - Problem List (1) Severe sepsis Impression: This is secondary to that urinary tract infection. He is improvement sepsis standpoint as his lactic acid is now within normal limits. He has also been afebrile and his white blood cell count is now improving. Urine culture and blood cultures are growing E. coli. We will discontinue vancomycin and cefepime and switch him over to ceftriaxone IV. We will not repeat blood cultures unless he continues to spike fevers or show lack of improvement. (2) UTI (urinary tract infection) Impression: This is believed to the cause of his sepsis. His urine culture has grown E. coli and blood cultures are also growing E. coli. We will discontinue vancomycin therapy and switch him to ceftriaxone today. He will need a total of 2 weeks of therapy. (3) Cerebrovascular accident (CVA) Impression: Initial concern on admission was stroke given his right upper and lower extremity deficits. These resolved in the emergency department and so TPA was not administered. Initial CT of the head was concerning for small hypodensity in left cote radiata which may have been an acute or subacute infarct. Since then, he has had no obvious focal deficits. He went for MRI yesterday but the read is still pending although on my read, it appears that he has had multiple left sided infarcts. He is being treated with aspirin and statin. We held off on anticoagulation for the time being until we ensure there is not a large strok e. (4) Chronic HFrEF (heart failure with reduced ejection fraction) Impression: There is initial concern for acute systolic heart failure but this no longer ap pears the case. Echocardiogram revealed an ejection fraction of 40 to 45%. His BNP is significantly decreased today and he is no longer hypoxic. We will start him on metoprolol and look to start lisinopril once his acute kidney injury is resolved. He does not need IV diuresis at this time and we can consider oral diuretics over the upcoming days. (5) Atrial fibrillation with RVR Impression: He has since converted back into a sinus rhythm. The diltiazem drip has been discontinued and we have switched him to oral metoprolol. We are holding off on anticoagulation until the MRI is read to ensure there was no evidence of stroke. We will also plan for endoscopy to evaluate esophageal mass as he would not want him to have an upper GI bleed after starting anticoagulation. (6) Acute respiratory failure with hypoxia Impression: He was hypoxic yesterday requiring 5 L of oxygen to maintain his saturation greater than 92%. This was felt to be likely secondary to pulmonary edema given the elevated BNP and the fact that his primary echocardiogram revealed an ejection fraction of 20%. We held off on diuresis given the sepsis and today he is actually quite improved and is now on room air. This is without the use of diuretics. I suspect his hypoxia may have been due to the sepsis rather than CHF. His BNP is significantly decreased today. At this point, we will hold off on diuretics as he appears euvolemic. We will switch the diltiazem to metoprolol given his heart failure. We will look to start lisinopril once his acute kidney injury is resolved. We will continue to monitor his respiratory status closely. (7) Acute kidney injury Impression: His creatinine peaked at 1.2 yesterday. It was 1.2 on admission and today it is down to 1.4. This was likely due to hypovolemia from the sepsis rather than cardiorenal syndrome. He responded well to IV fluids and we will evidently hydrate him still. We will start him on lisinopril once his acute kidney injury is resolved. Continue to avoid nephrotoxins. (8) Esophageal mass Impression: CT was concerning for esophageal mass with suspected metastatic disease. This was discussed with the patient. We discussed that he will need endoscopy based off his clinical course. If he continues to show improvement and will plan for endoscopy tomorrow with general surgery and I have asked him to evaluate the patient for this. (9) BPH (benign prostatic hyperplasia) Impression: He has been started on Flomax. We will remove the Valdovinos today to attempt a voiding trial.
--- NOTE | 2021-05-23 08:27 | MRI Report ---
PROCEDURE: BRAIN WO INDICATIONS: TIA TECHNIQUE: Noncontrast axial T1 spin echo, axial T2 fast spin echo, sagittal and axial FLAIR, coronal T2 fast sp in echo, axial gradient echo, axial diffusion and ADC through the brain. COMPARISON: CT head 05/21/2021 FINDINGS: Image quality: Excellent. CSF Spaces: Basal cisterns are patent. No extra-axial fluid collections. Ventricles are normal in size and shape. Brain: No intracranial masses or hemorrhage. Calvert/white matter interface is normal. Brainstem appe ars normal. Diffusion-weighted images demonstrate areas of hyperintense signal in the frontal lobe, with multifocal areas predominantly anteriorly. In addition, a larger focus in the posterior left par ietal lobe is present. Similar-appearing scattered foci are noted within the cote radiata and natali sular regions on the left. All areas of hyperintense diffusion signal demonstrate hypointense ADC sig nal. No superimposed hemorrhage. Normal intravascular flow voids are present. Skull and face: Calvarium has normal marrow signal. Orbits appear normal. Sinuses: Sinuses demonstrate minimal scattered areas of mucosal thickening including a small mucous retention cyst versus polyp in the left maxillary sinus. Mild fluid is present within the mastoid air cells bilaterally. IMPRESSION: Acute/subacute ischemia within the left dental and parietal lobes as well as smaller areas within the cote radiata and subinsular regions. No associated hemorrhage. Moderate atrophy and chronic microvascular ischemic changes. Scattered areas of fluid within the mastoid air cells bilaterally. Recommend correlation to potential mastoiditis. Reviewed by: Fariba Robles MD on 05/23/2021 8:26 AM PDT Approved by: Fariba Robles MD on 05/23/2021 8:26 AM PDT Station ID: [id number]
[2021-05-23] MEDS: ASPIRIN EC 81 MG TABLET PO SCH (08:58)
[2021-05-23] MEDS: POTASSIUM CHLORIDE 20 MEQ TABLET PO SCH ×2 (08:58→10:50)
[2021-05-23] MEDS: ENOXAPARIN 40 MG/0.4 ML SYRINGE SUBQ SCH (08:58)
[2021-05-23] MEDS: cefTRIAXone 2 GM in SODIUM CHLORIDE 0.9% MINIBAG 100 ML IV SCH (08:59)
[2021-05-23] MEDS ORDERED: diltiaZEM CD 120 MG CAPSULE PO SCH (09:00)
[2021-05-23] MEDS ORDERED: METOPROLOL SUCCINATE 50 MG TABLET PO SCH (09:00)
[2021-05-23] MEDS ORDERED: VANCOMYCIN INJ 1 GM, VANCOMYCIN INJ 500 MG in SODIUM CHLORIDE 0.9% 500 ML IV SCH (10:00)
--- NOTE | 2021-05-23 10:02 | CONSULTATION NOTE ---
Referring Provider Consult Date: 05/23/21 Chief Complaint - Chief Complaint Chief Complaint: admitted with cva History of Present Illness - History Obtained From Records Reviewed: yes History obtained from: pt Exam Limitations: none - History of Present Illness HPI Comment/Other: Admitted with cva. Work up cxr infiltrates. Ct chest esophageal thinking and mediastinal adenopathy concerning for metastatic esophageal cancer. He is much improved from admission. He denies pain on swallowing, trouble swallowing, weight loss. History - Past Medical History Cardiovascular: reports: [place], Congestive heart failure, Hypertension Respiratory: reports: None Neuro: reports: None Endocrine/Autoimmune: reports: None GI: reports: None : reports: None HEENT: reports: None Psych: reports: None Musculoskeletal: reports: None Derm: reports: None - Family & Social History Living arrangement: At home Living Situation: With spouse/s.o., With family Social History Notes: He does not smoke cigarettes, cigars or marijuana. He never smoked. He drinks extremely rare alcohol. - Substance History Use: Uses substance without health or social issues: NONE Meds/Allgy - Home Medications Home Medications: Ambulatory Orders Medication Instructions Recorded Confirmed No Known Home Medications 03/29/16 05/22/21 - Allergies Allergies/Adverse Reactions: Allergies Allergy/AdvReac Type Severity Reaction Status Date / Time No Known Drug Allergies Allergy Verified 05/22/21 10:15 Review of Systems - Other Findings Other Findings: 10 pt ros as above otherwise unremarkable Exam - Vital Signs Reviewed Vital Signs: Yes Vital Signs: Vital Signs x48h Temp Pulse Resp BP BP Pulse Ox 05/23/21 07:38 36.8 C 96 21 154/78 H 93 05/23/21 07:06 88 22 147/77 H 94 05/23/21 06:02 127/62 05/23/21 06:00 94 20 127/62 92 05/23/21 05:00 36.8 C 79 21 111/56 L 94 05/23/21 04:00 36.8 C 83 23 104/81 H 90 L 05/23/21 03:00 73 13 92/58 L 91 L - Physical Exam General Appearance: positive: No acute distress, Alert Eyes Bilateral: positive: PERRL, EOMI, No scleral icterus ENT: positive: No signs of dehydration Neck: positive: No JVD Respiratory: positive: No respiratory distress, Breath sounds nml Cardiovascular: positive: Irregularly irregular Abdomen: positive: Non-tender, No distention Neurologic/Psychiatric: positive: Oriented x3 Conclusion/Plan - Problem List (1) Esophageal mass Conclusion/Plan: ct scan concerning for metatstatic esophageal cancer. He has no ugi sxs. He is much improved from admit. Plan EGD 05/24/2021. - Lab Results Fish Bones: 05/23/21 04:19 05/23/21 04:19
[2021-05-23] MEDS: LEVALBUTEROL 1.25 MG/3 ML NEB INH PRN (16:13)
[2021-05-23] MEDS: ATORVASTATIN 40 MG TABLET PO SCH (21:07)
[2021-05-23] MEDS: TAMSULOSIN 0.4 MG CAPSULE PO SCH (21:07)
[2021-05-23] MEDS: METOPROLOL SUCCINATE 50 MG TABLET PO SCH (21:56)
[2021-05-24] MEDS: NITROGLYCERIN 2% PASTE TOP SCH (00:08)
[2021-05-24] MEDS: SODIUM CHLORIDE FLUSH 0.9% 10 ML SYRINGE IVP SCH ×3 (00:13→17:27)
[2021-05-24] MEDS: LACTATED RINGERS 1,000 ML IV SCH (04:06)
[2021-05-24] MEDS: LEVALBUTEROL 1.25 MG/3 ML NEB INH PRN (04:20)
[2021-05-24 05:18] LABS: VBG PH 7.46 (7.31-7.41)
[2021-05-24 05:19] LABS: CALCIUM, IONIZED 1.15 mmol/L (1.15-1.33)
[2021-05-24 05:21] LABS: BASOPHILS % (AUTO) 0.2 %; EOSINOPHILS % (AUTO) 0.5 %; HCT - HEMATOCRIT 41.6 % (42.0-52.0); HGB - HEMOGLOBIN 13.8 g/dL (14.0-18.0); LYMPHOCYTES % (AUTO) 7.8 %; MEAN CORPUSCULAR HEMOGLOBIN 28.9 pg (27.0-31.0); MEAN CORPUSCULAR HGB CONC 33.2 g/dL (32.0-36.0); MEAN PLATELET VOLUME 10.9 fL (7.4-11.4); MONOCYTES % (AUTO) 4.5 %; PLT - PLATELET COUNT 152 10^3/uL (130-450); RED BLOOD COUNT 4.78 10^6/uL (4.70-6.10); RED CELL DISTRIBUTION WIDTH 13.2 % (12.0-15.0); WHITE BLOOD COUNT 22.4 x10^3/uL (4.8-10.8)
[2021-05-24 05:30] LABS: ABNORMAL LYMPHS % (MANUAL) 0 %
[2021-05-24 05:37] LABS: CALCIUM 8.4 mg/dL (8.5-10.3); CREATININE 0.9 mg/dL (0.6-1.2); CRP - C-REACTIVE PROTEIN 9.3 mg/dL (0-1.0); MAGNESIUM 2.2 mg/dL (1.7-2.8); POTASSIUM 3.9 mmol/L (3.5-5.0)
[2021-05-24 05:47] LABS: BAND NEUTROPHILS % (MANUAL) 12 %; DIFFERENTIAL COMMENT MANUAL DIFFERENTIAL; LYMPHOCYTES # (MANUAL) 1.8 10^3/uL (1.5-3.5); LYMPHOCYTES % (MANUAL) 8 %; MONOCYTES # (MANUAL) 1.1 10^3/uL (0.0-1.0); NEUTROPHILS # (MANUAL) 19.5 10^3/uL (1.5-6.6); PLATELET ESTIMATE, MANUAL NORMAL (130-450,000) (NORMAL); RBC MORPHOLOGY (MULTIPLE) NORMAL APPEARANCE (NORMAL)
--- NOTE | 2021-05-24 07:31 | PROVIDER PROGRESS NOTE ---
Subjective - Prog Note Date Prog Note Date: 05/24/21 - Subjective Subjective: He feels quite good today. Reports no chest pain. He does not feel short of breath. He has not ambulated very much but has felt quite well when he has ambulated. He would like to go home as soon as possible. Current Medications - Current Medications Current Medications: Active Medications Acetaminophen (Acetaminophen 325 Mg Tablet) 650 mg PO Q4HR PRN PRN Reason: Pain or Fever > 38C (100.4F) Last Admin: 05/22/21 16:00 Dose: 650 mg Aspirin (Aspirin Ec 81 Mg Tablet) 81 mg PO DAILY [facility] Last Admin: 05/24/21 07:59 Dose: 81 mg Atorvastatin Calcium (Atorvastatin 40 Mg Tablet) 80 mg PO QPM [facility] Last Admin: 05/23/21 21:07 Dose: 80 mg Enoxaparin Sodium (Enoxaparin 40 Mg/0.4 Ml Syringe) 40 mg SUBQ DAILY [facility] Last Admin: 05/24/21 07:59 Dose: 40 mg Ceftriaxone Sodium 2 gm/ (Sodium Chloride) 100 mls @ 200 mls/hr IV DAILY [facility] Last Infusion: 05/24/21 08:56 Dose: Infused Levalbuterol HCl (Levalbuterol 1.25 Mg/3 Ml Neb) 1.25 mg INH Q4H PRN PRN Reason: Shortness of Air/Wheezing Last Admin: 05/24/21 04:20 Dose: 1.25 mg Metoprolol Succinate (Metoprolol Succinate 50 Mg Tablet) 50 mg PO BID [facility] Last Admin: 05/24/21 07:59 Dose: 50 mg Morphine Sulfate (Morphine 2 Mg/Ml Carpuject) 2 mg IVP Q6HR PRN PRN Reason: Dyspnea Last Admin: 05/24/21 04:29 Dose: 2 mg Ondansetron HCl (Ondansetron 4 Mg/2 Ml Vial) 4 mg IVP Q6HR PRN PRN Reason: Nausea / Vomiting Sodium Chloride (Sodium Chloride Flush 0.9% 10 Ml Syringe) 10 ml IVP 0100,0900,1700 [facility] Last Admin: 05/24/21 07:59 Dose: 10 ml Sodium Chloride (Sodium Chloride Flush 0.9% 10 Ml Syringe) 10 ml IVP PRN PRN PRN Reason: NEEDED PER PROVIDER ORDERS Last Admin: 05/22/21 14:59 Dose: 10 ml Tamsulosin HCl (Tamsulosin 0.4 Mg Capsule) 0.4 mg PO HS [facility] Last Admin: 05/23/21 21:07 Dose: 0.4 mg No Known Home Medications 03/29/16 Objective - Vital Signs/Intake & Output Reviewed Vital Signs: Yes Vital Signs: Vital Signs x48h Temp Pulse Pulse Resp BP BP Pulse Ox 05/24/21 05:06 36.4 C L 66 18 154/81 H 97 05/24/21 04:21 96 18 05/24/21 00:17 36.5 C 52 L 18 175/85 H 97 Intake & Output: Intake & Output 05/21/21 05/22/21 05/23/21 05/24/21 23:59 23:59 23:59 23:59 Intake Total 344.316 7488.000 4392.917 960.417 Output Total 1530 1334 1443 950 Balance -898.313 2015.000 2949.917 10.417 - Objective General Appearance: positive: No acute distress, Alert Eyes Bilateral: positive: Normal inspection, Conjunctivae nml ENT: positive: ENT inspection nml Neck: positive: Nml inspection Respiratory: positive: No respiratory distress. negative: Wheezes, Rales Cardiovascular: positive: Irregularly irregular. negative: Tachycardia, Systolic murmur Skin: positive: Warm, Dry Extremities: positive: No pedal edema Neurologic/Psychiatric: positive: Other (5/5 motor strength in all four extremities. Still has mild dysmetria in the right upper extremity with abnormal [id number] test.). negative: Disoriented to person, Disoriented to place - Lab Results Fish Bones: 05/24/21 04:40 05/24/21 04:40 Other Labs: Lab Results x24hrs 05/24/21 05/24/21 05/24/21 Range/Units 04:40 04:40 04:40 WBC (4.8-10.8) x10^3/uL RBC (4.70-6.10) 10^6/uL Hgb (14.0-18.0) g/dL Hct (42.0-52.0) % MCV (80.0-94.0) fL MCH (27.0-31.0) pg MCHC (32.0-36.0) g/dL RDW (12.0-15.0) % Plt Count (130-450) 10^3/uL MPV (7.4-11.4) fL Neut # (Auto) Lymph # (Auto) [place] # (Auto) Eos # (Auto) Baso # (Auto) Absolute Nucleated RBC Total Counted Band Neuts % (Manual) (0 - 10) % Abnorm Lymph % (Manual) % Nucleated RBC % Neutrophils # (Manual) (1.5-6.6) 10^3/uL Lymphocytes # (Manual) (1.5-3.5) 10^3/uL Monocytes # (Manual) (0.0-1.0) 10^3/uL Eosinophils # (Manual) (0-0.7) 10^3/uL Basophils # (Manual) (0-0.1) 10^3/uL Differential Comment Platelet Estimate (NORMAL) RBC Morph Micro Appear (NORMAL) VBG pH 7.460 H (7.31-7.41) Ionized Calcium 1.15 (1.15-1.33) mmol/L Sodium 138 (135-145) mmol/L Potassium 3.9 (3.5-5.0) mmol/L Chloride 105 (101-111) mmol/L Carbon Dioxide 22 (21-32) mmol/L Anion Gap 11.0 (6-13) BUN 29 H (6-20) mg/dL Creatinine 0.9 (0.6-1.2) mg/dL Estimated GFR (MDRD) 82 L (>89) Glucose 103 H (70-100) mg/dL Calcium 8.4 L (8.5-10.3) mg/dL Magnesium 2.2 (1.7-2.8) mg/dL C-Reactive Protein 9.3 H (0-1.0) mg/dL B-Natriuretic Peptide 451 H (5-100) pg/mL 05/24/21 Range/Units 04:40 WBC 22.4 H (4.8-10.8) x10^3/uL RBC 4.78 (4.70-6.10) 10^6/uL Hgb 13.8 L (14.0-18.0) g/dL Hct 41.6 L (42.0-52.0) % MCV 87.0 (80.0-94.0) fL MCH 28.9 (27.0-31.0) pg MCHC 33.2 (32.0-36.0) g/dL RDW 13.2 (12.0-15.0) % Plt Count 152 (130-450) 10^3/uL MPV 10.9 (7.4-11.4) fL Neut # (Auto) Not Reportable Lymph # (Auto) Not Reportable [place] # (Auto) Not Reportable Eos # (Auto) Not Reportable Baso # (Auto) Not Reportable Absolute Nucleated RBC Not Reportable Total Counted 100 Band Neuts % (Manual) 12 H (0 - 10) % Abnorm Lymph % (Manual) 0 % Nucleated RBC % Not Reportable Neutrophils # (Manual) 19.5 H (1.5-6.6) 10^3/uL Lymphocytes # (Manual) 1.8 (1.5-3.5) 10^3/uL Monocytes # (Manual) 1.1 H (0.0-1.0) 10^3/uL Eosinophils # (Manual) 0.0 (0-0.7) 10^3/uL Basophils # (Manual) 0.0 (0-0.1) 10^3/uL Differential Comment MANUAL DIFFERENTIAL Platelet Estimate NORMAL (130-450,000) (NORMAL) RBC Morph Micro Appear NORMAL APPEARANCE (NORMAL) VBG pH (7.31-7.41) Ionized Calcium (1.15-1.33) mmol/L Sodium (135-145) mmol/L Potassium (3.5-5.0) mmol/L Chloride (101-111) mmol/L Carbon Dioxide (21-32) mmol/L Anion Gap (6-13) BUN (6-20) mg/dL Creatinine (0.6-1.2) mg/dL Estimated GFR (MDRD) (>89) Glucose (70-100) mg/dL Calcium (8.5-10.3) mg/dL Magnesium (1.7-2.8) mg/dL C-Reactive Protein (0-1.0) mg/dL B-Natriuretic Peptide (5-100) pg/mL Sepsis Event Note (H) - Evaluation Current Stage of Sepsis: Severe sepsis Possible source of Sepsis: positive: Pulmonary, Genitourinary - Sepsis Criteria Sepsis Criteria: Recorded Temperature greater than 38.3C or Less than 36C, Recorded Heart Rate greater than 90 bpm, WBC count greater than 10% bands, WBC count greater than 12,000 or less than 4000, Renal: urine output less than 0.5ml/kg/hr for 2 hours or creatinine gr, Metabolic: lactate > 2 mmol/L Assessment/Plan - Problem List (1) Severe sepsis Impression: Secondary to urinary tract infection. His sepsis is significantly improved. Lactic acid is within normal limits. His white count remains elevated but it continues to improve on a daily basis. Urine and blood cultures grew E. coli. We will continue him on ceftriaxone and we will look to switch him to oral Levaquin tomorrow in anticipation of discharge and a total of 2 weeks of therapy. (2) UTI (urinary tract infection) Impression: Urine culture and blood cultures grew E. coli. He remains on ceftriaxone IV. We will switch him to oral fluoroquinolone tomorrow in preparation of discharge. He will be treated for total of 2 weeks. (3) Cerebrovascular accident (CVA) Impression: MRI confirmed multiple left-sided infarcts. His gross motor strength is intact but he does have dysmetria and abnormal [id number] tests of the right upper extremity. He remains on aspirin and statin. We are holding anticoagulation until the EGD today as I am concerned he may potentially have hemorrhage from the esophageal mass. I discussed MRI findings with neurology at [place] and they felt it is reasonable to initiate anticoagulation in 1 week after the stroke. (4) Chronic HFrEF (heart failure with reduced ejection fraction) Impression: Initial concern was for acute systolic heart failure but he is much improved from a dyspnea standpoint. He is no longer dyspneic. I repeated a chest x-ray today which shows significant improvement of pulmonary edema although there is still some pulmonary vascular congestion present. Echocardiogram revealed an ejection fraction of 45%. We will give him a one time dose of IV Lasix today since x-ray still reveals congestion and start him on lisinopril. We will also continue metoprolol. I believe he is optimized to undergo the endoscopy today. (5) Atrial fibrillation with RVR Impression: Heart rate has been controlled on Toprol. We will continue 50 mg twice daily. We are holding off on anticoagulation until the EGD to better evaluate the esophageal mass and will discuss with neurology regarding when it would be appropriate to start evaluation given the multiple infarcts. (6) Esophageal mass Impression: CT was concerning for esophageal mass with suspected metastatic disease. Plan is for endoscopy today to better evaluate this mass. I believe he is optimized for the EGD today. We will get this done while he is hospitalized because he should be anticoagulated in the future given the atrial fibrillation and stroke. He will also need work-up of the mass in the future and this will likely be delayed on the outpatient basis as he does not have a primary care physician. (7) BPH (benign prostatic hyperplasia) Impression: He has been started on flomax. He has been voiding well since the Valdovinos catheter was removed. (8) Acute respiratory failure with hypoxia Impression: This is resolved. He is on room air and denies any dyspnea. X-ray today still shows some pulmonary vascular congestion but this is significantly improved. We will trial a dose of IV Lasix and start him on oral Lasix on discharge. (9) Acute kidney injury Impression: This is resolved. Secondary to hypovolemia and he responded well to IV fluids. We will start him on lisinopril now given the chronic heart failure.
[2021-05-24] MEDS: ENOXAPARIN 40 MG/0.4 ML SYRINGE SUBQ SCH (07:59)
[2021-05-24] MEDS: ASPIRIN EC 81 MG TABLET PO SCH (07:59)
[2021-05-24] MEDS: METOPROLOL SUCCINATE 50 MG TABLET PO SCH ×2 (07:59→20:57)
[2021-05-24] MEDS: cefTRIAXone 2 GM in SODIUM CHLORIDE 0.9% MINIBAG 100 ML IV SCH (07:59)
--- NOTE | 2021-05-24 08:54 | XRAY Report ---
PROCEDURE: Chest 1 View X-Ray INDICATIONS: Dyspnea. CHF? TECHNIQUE: One view of the chest was acquired. COMPARISON: March 29, 2016 FINDINGS: SUPPORT DEVICES: None. LUNGS/PLEURA: Prominence of the vascular markings, suggesting pulmonary edema. Blunting of the costop hrenic sulci, compatible with small pleural effusions. No pneumothorax. MEDIASTINUM: Enlargement of the cardiac silhouette. BONES/SOFT TISSUES: No acute abnormality. IMPRESSION: 1.Cardiomegaly with pulmonary edema pattern. Reviewed by: Dustin Valerio MD on 05/24/2021 8:53 AM PDT Approved by: Dustin Valerio MD on 05/24/2021 8:53 AM PDT Station ID: [id number]
[2021-05-24] MEDS ORDERED: FUROSEMIDE 40 MG/4 ML VIAL IVP STA (09:20)
--- NOTE | 2021-05-24 09:58 | ANESTHESIA ---
Pre-Anesthesia VS, & Labs - Diagnosis esophageal mass - Procedure EGD Vital Signs: Temp Pulse Resp BP Pulse Ox 36.5 C 92 19 169/90 H 97 05/24/21 07:56 05/24/21 08:54 05/24/21 08:54 05/24/21 07:56 05/24/21 07:56 Height: 6 ft Weight (kg): 93.5 kg Body Mass Index: 27.9 BMI Classification: Overweight - NPO >8 hours - Lab Results Current Lab Results: Laboratory Tests 05/24/21 04:40: VBG pH 7.460 H, Ionized Calcium 1.15 05/24/21 04:40: B-Natriuretic Peptide 451 H 05/24/21 04:40: Sodium 138, Potassium 3.9, Chloride 105, Carbon Dioxide 22, Anion Gap 11.0, BUN 29 H, Creatinine 0.9, Estimated GFR (MDRD) 82 L, Glucose 103 H, Calcium 8.4 L, Magnesium 2.2, C-Reactive Protein 9.3 H 05/24/21 04:40: WBC 22.4 H, RBC 4.78, Hgb 13.8 L, Hct 41.6 L, MCV 87.0, MCH 28.9, MCHC 33.2, RDW 13.2, Plt Count 152, MPV 10.9, Neut # (Auto) Not Reportable, Lymph # (Auto) Not Reportable, [place] # (Auto) Not Reportable, Eos # (Auto) Not Reportable, Baso # (Auto) Not Reportable, Absolute Nucleated RBC Not Reportable, Total Counted 100, Band Neuts % (Manual) 12 H, Abnorm Lymph % (Manual) 0, Nucleated RBC % Not Reportable, Neutrophils # (Manual) 19.5 H, Lymphocytes # (Manual) 1.8, Monocytes # (Manual) 1.1 H, Eosinophils # (Manual) 0.0, Basophils # (Manual) 0.0, Differential Comment MANUAL DIFFERENTIAL, Platelet Estimate NORMAL (130-450,000), RBC Morph Micro Appear NORMAL APPEARANCE 05/23/21 04:19: Phosphorus 2.6 05/23/21 04:19: VBG pH 7.444 H, Ionized Calcium 1.11 L 05/23/21 04:19: B-Natriuretic Peptide 168 H 05/23/21 04:19: Sodium 136, Potassium 3.5, Chloride 103, Carbon Dioxide 23, Anion Gap 10.0, BUN 36 H, Creatinine 1.4 H, Estimated GFR (MDRD) 50 L, Glucose 98, Calcium 8.0 L, Magnesium 2.0, C-Reactive Protein 15.4 H 05/23/21 04:19: WBC 37.7 H*, RBC 4.23 L, Hgb 12.6 L, Hct 36.6 L, MCV 86.5, MCH 29.8, MCHC 34.4, RDW 13.3, Plt Count 140, MPV 10.8, Neut # (Auto) Not Reportable, Lymph # (Auto) Not Reportable, [place] # (Auto) Not Reportable, Eos # (Auto) Not Reportable, Baso # (Auto) Not Reportable, Absolute Nucleated RBC Not Reportable, Total Counted 100, Band Neuts % (Manual) 15 H, Abnorm Lymph % (Manual) 0, Nucleated RBC % Not Reportable, Neutrophils # (Manual) 34.7 H, Lymphocytes # (Manual) 1.1 L, Monocytes # (Manual) 1.5 H, Eosinophils # (Manual) 0.0, Basophils # (Manual) 0.4 H, Differential Comment MANUAL DIFFERENTIAL, Platelet Estimate NORMAL (130-450,000), RBC Morph Micro Appear NORMAL APPEARANCE 05/22/21 20:00: Lactic Acid 1.8 05/22/21 17:01: VBG pH 7.437 H, Ionized Calcium 1.11 L 05/22/21 17:01: Lactic Acid 2.9 H 05/22/21 13:52: Lactic Acid 4.7 H* 05/22/21 13:52: Sodium 134 L, Potassium 4.3, Chloride 101, Carbon Dioxide 21, Anion Gap 12.0, BUN 35 H, Creatinine 1.8 H, Estimated GFR (MDRD) 37 L, Glucose 124 H, Calcium 8.2 L 05/22/21 13:52: WBC 55.4 H*, RBC 4.76, Hgb 14.1, Hct 41.5 L, MCV 87.2, MCH 29.6, MCHC 34.0, RDW 13.2, Plt Count 193, MPV 10.3, Neut # (Auto) Not Reportable, Lymph # (Auto) Not Reportable, [place] # (Auto) Not Reportable, Eos # (Auto) Not Reportable, Baso # (Auto) Not Reportable, Absolute Nucleated RBC Not Reportable, Total Counted 100, Band Neuts % (Manual) 4, Abnorm Lymph % (Manual) 0, Nucleated RBC % Not Reportable, Neutrophils # (Manual) 53.2 H, Lymphocytes # (Manual) 1.1 L, Monocytes # (Manual) 1.1 H, Eosinophils # (Manual) 0.0, Basophils # (Manual) 0.0, Differential Comment MANUAL DIFFERENTIAL, Manual Slide Review Indicated, Platelet Estimate NORMAL (130-450,000), Platelet Morphology NORMAL APPEARANCE, RBC Morph Micro Appear NORMAL APPEARANCE 05/22/21 12:58: VBG pH 7.431 H, Ionized Calcium 1.08 L 05/22/21 12:58: Potassium 4.4, Magnesium 1.7 05/22/21 10:29: Lactic Acid 4.5 H* 05/22/21 07:55: Lactic Acid 3.6 H* 05/22/21 04:10: VBG pH 7.456 H, Ionized Calcium 1.06 L 05/22/21 04:10: Lactic Acid 2.9 H 05/22/21 04:10: Triglycerides 80, Cholesterol 91, LDL Cholesterol, Calc 51, VLDL Cholesterol 16, HDL Cholesterol 24 L, LDL/HDL Ratio 2.1, Cholesterol/HDL Ratio 3.8 05/22/21 04:10: TSH 2.44 05/22/21 04:10: B-Natriuretic Peptide 1312 H 05/22/21 04:10: Troponin I High Sens 70.7 H* 05/22/21 04:10: Sodium 138, Potassium 3.0 L, Chloride 104, Carbon Dioxide 18 L, Anion Gap 16.0 H, BUN 32 H, Creatinine 1.5 H, Estimated GFR (MDRD) 46 L, Glucose 124 H, Calcium 8.8, Phosphorus 3.6, Magnesium 1.7 05/22/21 04:10: WBC 50.9 H*, RBC 5.16, Hgb 15.3, Hct 44.4, MCV 86.0, MCH 29.7, MCHC 34.5, RDW 12.8, Plt Count 199, MPV 10.2, Neut # (Auto) Not Reportable, Lymph # (Auto) Not Reportable, [place] # (Auto) Not Reportable, Eos # (Auto) Not Reportable, Baso # (Auto) Not Reportable, Absolute Nucleated RBC Not Reportable, Total Counted 100, Band Neuts % (Manual) 0, Abnorm Lymph % (Manual) 0, Nucleated RBC % Not Reportable, Neutrophils # (Manual) 48.9 H, Lymphocytes # (Manual) 0.5 L, Monocytes # (Manual) 1.5 H, Eosinophils # (Manual) 0.0, Basophils # (Manual) 0.0, Differential Comment MANUAL DIFFERENTIAL, WBC Morphology NORMAL APPEARANCE, Platelet Estimate NORMAL (130-450,000), Platelet Morphology NORMAL APPEARANCE, RBC Morph Micro Appear NORMAL APPEARANCE 05/21/21 21:20: Troponin I High Sens 86.9 H* 05/21/21 21:20: Lactic Acid 3.0 H* 05/21/21 19:51: Lactic Acid 4.3 H* 05/21/21 19:04: Ethyl Alcohol < 5.0 05/21/21 18:06: B-Natriuretic Peptide 286 H 05/21/21 18:06: Troponin I High Sens 53.2 H* 05/21/21 18:06: Sodium 144, Potassium 3.7, Chloride 106, Carbon Dioxide 25, Anion Gap 13.0, BUN 29 H, Creatinine 1.2, Estimated GFR (MDRD) 59 L, Glucose 98, Calcium 9.9, Total Bilirubin 1.0, AST 37, ALT 55, Alkaline Phosphatase 87, Total Protein 7.8, Albumin 4.3, Globulin 3.5, Albumin/Globulin Ratio 1.2 05/21/21 18:06: PT 13.8 H, INR 1.2, APTT 28.3 05/21/21 18:06: WBC 7.1, RBC 5.96, Hgb 17.6, Hct 51.8, MCV 86.9, MCH 29.5, MCHC 34.0, RDW 12.7, Plt Count 241, MPV 9.7, Neut # (Auto) Not Reportable, Lymph # (Auto) Not Reportable, [place] # (Auto) Not Reportable, Eos # (Auto) Not Reportable, Baso # (Auto) Not Reportable, Absolute Nucleated RBC Not Reportable, Total Counted 100, Band Neuts % (Manual) 31 H, Abnorm Lymph % (Manual) 0, Nucleated RBC % Not Reportable, Neutrophils # (Manual) 6.1, Lymphocytes # (Manual) 0.9 L, Monocytes # (Manual) 0.0, Eosinophils # (Manual) 0.1, Basophils # (Manual) 0.0, Differential Comment MANUAL DIFFERENTIAL, Platelet Estimate NORMAL (130-450,000), Platelet Morphology 1+ LARGE PLATELETS, RBC Morph Micro Appear NORMAL APPEARANCE 05/21/21 18:04: POC Whole Bld Glucose 82 Lab results reviewed: Yes Fish Bones: 05/24/21 04:40 05/24/21 04:40 Home Medications and Allergies Active Medications Acetaminophen (Acetaminophen 325 Mg Tablet) 650 mg PO Q4HR PRN PRN Reason: Pain or Fever > 38C (100.4F) Last Admin: 05/22/21 16:00 Dose: 650 mg Aspirin (Aspirin Ec 81 Mg Tablet) 81 mg PO DAILY [facility] Last Admin: 05/24/21 07:59 Dose: 81 mg Atorvastatin Calcium (Atorvastatin 40 Mg Tablet) 80 mg PO QPM [facility] Last Admin: 05/23/21 21:07 Dose: 80 mg Enoxaparin Sodium (Enoxaparin 40 Mg/0.4 Ml Syringe) 40 mg SUBQ DAILY [facility] Last Admin: 05/24/21 07:59 Dose: 40 mg Ceftriaxone Sodium 2 gm/ (Sodium Chloride) 100 mls @ 200 mls/hr IV DAILY [facility] Last Infusion: 05/24/21 08:56 Dose: Infused Levalbuterol HCl (Levalbuterol 1.25 Mg/3 Ml Neb) 1.25 mg INH Q4H PRN PRN Reason: Shortness of Air/Wheezing Last Admin: 05/24/21 04:20 Dose: 1.25 mg Metoprolol Succinate (Metoprolol Succinate 50 Mg Tablet) 50 mg PO BID [facility] Last Admin: 05/24/21 07:59 Dose: 50 mg Morphine Sulfate (Morphine 2 Mg/Ml Carpuject) 2 mg IVP Q6HR PRN PRN Reason: Dyspnea Last Admin: 05/24/21 04:29 Dose: 2 mg Ondansetron HCl (Ondansetron 4 Mg/2 Ml Vial) 4 mg IVP Q6HR PRN PRN Reason: Nausea / Vomiting Sodium Chloride (Sodium Chloride Flush 0.9% 10 Ml Syringe) 10 ml IVP 0100,0900,1700 [facility] Last Admin: 05/24/21 07:59 Dose: 10 ml Sodium Chloride (Sodium Chloride Flush 0.9% 10 Ml Syringe) 10 ml IVP PRN PRN PRN Reason: NEEDED PER PROVIDER ORDERS Last Admin: 05/22/21 14:59 Dose: 10 ml Tamsulosin HCl (Tamsulosin 0.4 Mg Capsule) 0.4 mg PO HS [facility] Last Admin: 05/23/21 21:07 Dose: 0.4 mg No Known Home Medications 03/29/16 Allergies/Adverse Reactions: Allergies Allergy/AdvReac Type Severity Reaction Status Date / Time No Known Drug Allergies Allergy Verified 05/22/21 10:15 Anes History & Medical History - Anesthetic History Anesthesia Complications: reports: No previous complications - Medical History Cardiovascular: reports: Congestive heart failure, Hypertension, [place], Atrial fibrillation Pulmonary: reports: Other (respiratory failure d/t sepsis) Gastrointestinal: reports: Other (esphageal mass) Urinary: reports: None Neuro: reports: CVA (recent, see hospitalist note) Musculoskeletal: reports: None Endocrine/Autoimmune: reports: None Blood Disorders: reports: None Skin: reports: None Smoking Status: Never smoker History of Cancer?: No Other Past Medical History: - 2016 Exam General: Alert, Oriented x3 Dental: WNL Mouth Opening: Greater than 4 Fingerbreadths Neck Mobility: Normal Mallampati classification: II Respiratory: Lungs clear Cardiovascular: Regular rate Plan Anesthesia Type: Total IV Consent for Procedure(s) Verified and Reviewed: Yes Code Status: Attempt Resuscitation ASA classification: 3-Severe systemic disease Is this case an emergency?: No
[2021-05-24] MEDS ORDERED: LACTATED RINGERS 1,000 ML IV ONE (12:07)
[2021-05-24] MEDS ORDERED: PROPOFOL 200 MG/20 ML VIAL IVP ONE (12:20)
--- NOTE | 2021-05-24 12:22 | OPERATIVE REPORT ---
Operative Report - General Admit Date: 05/21/21 Procedure Date: 05/24/21 Planned Procedure: EGD Pre-Op Diagnosis: thickened esophagus on ct concerning for cancer Procedure Performed: EGD Post Op Diagnosis: mild diffuse gastritis otherwise normal upper endoscopy - Procedure Note Primary Surgeon: trung de la torre Anesthesia Technique: MAC Pathology: none Estimated Blood Loss (mL): 0 Indications: ct findings concerning for esophageal cancer Findings: normal esophagus Complications: none
--- NOTE | 2021-05-24 13:08 | ANESTHESIA POST OP EVALUATION ---
Anesthesia Post Eval - Post Anesthesia Eval Vitals: Last Vital Signs Temp 36.5 C 05/24/21 12:55 Pulse 85 05/24/21 12:55 Resp 20 05/24/21 12:55 BP 153/86 H 05/24/21 12:55 Pulse Ox 99 05/24/21 12:55 CV Function Including HR & BP: Stable Pain Control: Satisfactory Nausea & Vomiting: Negative Mental Status: Baseline Respiratory Status: Airway Patent Hydration Status: Satisfactory Anesthesia Complications: None
[2021-05-24] MEDS: lisinopriL 5 MG TABLET PO SCH (13:28)
[2021-05-24] MEDS: TAMSULOSIN 0.4 MG CAPSULE PO SCH (20:57)
[2021-05-24] MEDS: ATORVASTATIN 40 MG TABLET PO SCH (20:57)
[2021-05-25] MEDS: SODIUM CHLORIDE FLUSH 0.9% 10 ML SYRINGE IVP SCH ×2 (00:02→08:56)
[2021-05-25 06:20] LABS: BASOPHILS # (AUTO) 0.1 10^3/uL (0.0-0.1); BASOPHILS % (AUTO) 0.3 %; EOSINOPHILS # (AUTO) 0.2 10^3/uL (0.0-0.7); HCT - HEMATOCRIT 46.6 % (42.0-52.0); HGB - HEMOGLOBIN 15.4 g/dL (14.0-18.0); LYMPHOCYTES # (AUTO) 1.6 10^3/uL (1.5-3.5); LYMPHOCYTES % (AUTO) 10.3 %; MEAN CORPUSCULAR HEMOGLOBIN 28.6 pg (27.0-31.0); MEAN CORPUSCULAR VOLUME 86.5 fL (80.0-94.0); MEAN PLATELET VOLUME 11.1 fL (7.4-11.4); MONOCYTES # (AUTO) 0.6 10^3/uL (0.0-1.0); MONOCYTES % (AUTO) 4.2 %; NEUTROPHILS # (AUTO) 12.8 10^3/uL (1.5-6.6); NEUTROPHILS % (AUTO) 83.5 %; PLT - PLATELET COUNT 171 10^3/uL (130-450); RED BLOOD COUNT 5.39 10^6/uL (4.70-6.10); RED CELL DISTRIBUTION WIDTH 13.1 % (12.0-15.0); WHITE BLOOD COUNT 15.3 x10^3/uL (4.8-10.8)
[2021-05-25 06:39] LABS: CALCIUM 8.9 mg/dL (8.5-10.3); CREATININE 0.9 mg/dL (0.6-1.2); MAGNESIUM 2.1 mg/dL (1.7-2.8)
[2021-05-25] MEDS ORDERED: PANTOPRAZOLE 40 MG TABLET PO SCH (07:00)
--- NOTE | 2021-05-25 07:46 | Discharge Plan ---
Discharge Plan Problem Reviewed?: Yes Disposition: Home, Self Care Condition: Stable Prescriptions: Aspirin [Boy] 325 mg PO DAILYWM #7 tablet Apixaban [Eliquis] 5 mg PO BID #60 tablet Tamsulosin [Flomax] 0.4 mg PO HS #30 cap Furosemide [Lasix] 40 mg PO DAILY #30 tablet levoFLOXacin [Levaquin] 750 mg PO DAILY 11 Days #33 tablet Atorvastatin [Lipitor] 80 mg PO QPM #60 tablet Pantoprazole [Protonix] 40 mg PO QDAC #30 tablet Metoprolol Succinate [Toprol Xl] 50 mg PO BID #60 tablet lisinopriL [Zestril] 10 mg PO DAILY #60 tablet Diet: Low Sodium Activity Restrictions: Activity as Tolerated Instruction Topics: Metoprolol tablets, Furosemide tablets, Heart Failure Dc, Stroke Dc, Atrial Fibrillation Health Concerns: You were admitted to the hospital because of right-sided weakness which was due to a stroke. You are also found to have a urinary tract infection that spread to your blood. You were also found to have an irregular heart rhythm called atrial fibrillation. You were also found to have heart failure which is when your heart pump is weak and cannot pump blood appropriately to the rest of your body. There was also concern that you may have had an esophageal mass and so he underwent endoscopy but this just revealed gastritis. You were also found to have blockage in your left carotid artery which supplies blood to the brain. This can increase your risk of stroke. Plan of Treatment: You will now need to begin taking multiple medications due to the stroke, atrial fibrillation, and heart failure. Please begin taking metoprolol 50 mg twice daily, lisinopril 10 mg once a day, furosemide 40 mg once a day. All of these medications are for your heart failure to help improve your heart function and to keep fluid out of your lungs. The metoprolol will also help control your heart rate given the atrial fibrillation. You will be taking a full dose aspirin 325 mg once a day until May 28. On that day, you will stop the aspirin and begin taking Eliquis 5 mg twice a day. This is a blood thinner to reduce your risk of stroke in the future. This cannot be started until 28 May to reduce the risk of a brain bleed after a stroke. Please also take Lipitor 80 mg in the evening. This is to help reduce your risk of stroke. We have also prescribed you Flomax which is a medication to help you urinate easier as there was evidence of urinary retention initially. Please take Protonix 40 mg once a day. This is for your gastritis. Please also take Levaquin 750 mg once a day starting tomorrow until June 05. This will complete 2 weeks of therapy for the urinary tract infection that spread to your blood. You will also need a repeat CT scan of your chest in 3 months as the initial [address] scan was concerning for abnormal lymph nodes and these will need to be monitored. You will also need an ultrasound of your thyroid as there was concern for nodule on the CT scan and this will need further evaluation. You will need a referral to vascular surgery for further evaluation of the carotid artery stenosis as you may need intervention to decrease your risk of stroke in the future. Assessment: The patient expressed understanding of the treatment plan. Additional Instructions or Follow Up instructions: It will be important that you follow-up with a primary care physician within 1 to 2 weeks to ensure that you are doing well on all of these medications. You should also be referred to a hydraulic corrugating machine operator for further evaluation of your heart failure. You should also be referred to a neurologist due to the stroke as well as vascular surgery due to the blockage in your carotid artery. Please return to the emergency department if you develop any new weakness in your extremities, difficulty speaking or slurred speech. Please also return if you develop chest pain or difficulty breathing or worsening leg swelling. Follow-Up Care: [facility] - CHF Classes, Outpatient Rehab - PT, Outpatient Rehab - OT No Smoking: If you smoke, Please STOP! Call for help.
[2021-05-25] MEDS ORDERED: ASPIRIN 325 MG TABLET PO SCH (08:00)
--- NOTE | 2021-05-25 08:02 | DISCHARGE SUMMARY ---
Discharge Summary Admit Date: 05/21/21 Discharge Date: 05/25/21 Discharging Provider: Leo Tineo Code Status: Attempt Resuscitation Condition at Discharge: Stable Discharge Disposition: 01 Home, Self Care - DIAGNOSES Admission Diagnoses: TIA Sepsis UTI Community-acquired pneumonia Pleural effusion CHF Malignant essential hypertension Esophageal mass BPH Petechial rash Noncompliance to medical treatment Discharge Diagnoses with Status of Each Condition: Severe sepsis - resolved. UTI - improved. E.Coli bacteremia - improved. Cerebrovascular accident - stable. Chronic HFrEF - stable. A. fib with RVR - stable. Gastritis - resolved. BPH - stable. Thyroid nodule - stable. Carotid artery stenosis - stable. Acute kidney injury - resolved. Acute story failure hypoxia - resolved. - HPI History of Present Illness: H&P per Dr. Almanza: This is a 76-year-old white male who reported that he has a history of high blood pressure and had an HI, but he takes no medicines. In 2017 he had an HI, was treated at [facility], but does not follow with a energy control officer and said he stopped all his medicines shortly after being diagnosed because the medicines "did not make him feel better". He also has not seen a doctor since 2017. He is a retiring owusu, does minimal carpentry work now. He lives with his girlfriend and 20-year-old son. Today after taking an afternoon nap he awoke and could not move his right arm, right leg and could not speak. An ambulance was called. He presented to the ED and a telestroke call was started. He underwent brain imaging with CT that showed no hemorrhage but a possible subacute stroke. His blood pressure was 250/150. As the telestroke consultation was ongoing, all of his symptoms resolved. Then he started to develop chest pain and then shortness of breath and then a fever. He had no chest pain, shortness of breath or fever yesterday, he states. He then underwent a CTA to assure there was no aortic dissection and there was none. CT chest findings were that of groundglass opacifications consistent with an atypical pneumonia, moderate bilateral pleural effusions, a mid esophageal mass constricting the esophageal lumen and bilateral hilar lymph nodes consistent with metastesis. He then spiked a fever to 38.0 degrees C. Urinalysis returned showing positive white blood cells and many bacteria. Lactic Acid level 4.3. WBC was normal at 7 but Bands were 31%. BNP elevated at 286, first troponin 53. A CT of the abdomen and pelvis had also been done which shows evidence of prostatic hypertrophy, a diverticulum of the right side of the bladder and no fat stranding of the kidneys was described. He was started on a nicardipine drip for the very high blood pressure and got a nebulizer for his shortness of breath, Lasix IV 40 mg, morphine IV and a Valdovinos catheter was inserted. His blood pressure improved to the 130s and the nicardipine drip was then turned off. He had blood cx done and was given iv Levaquin. Then his heart rate, which was 99 in sinus rhythm increased to 130, when he spiked a fever and after Albuterol. The patient is being admitted to the ICU for a TIA, malignant hypertension, CHF exacerbation, community-acquired pneumonia, UTI and sepsis. We discussed his wishes for CODE BLUE and he does not know what he wants, therefore by default he will be a Full Code. - CONSULTS | PROCEDURES Consultations: General Surgery Procedures: EGD May 24 showed gastritis with no evidence of mass. - HOSPITAL COURSE Hospital Course: The patient was admitted for concern of stroke. His right-sided weakness had resolved prior to admission. He was started on aspirin and Lipitor. Shortly after admission, he became septic as he was febrile and his white blood cell count increased to over 50,000. He was placed on Levaquin for a suspected urinary tract infection. He was also diuresed with Lasix as there was concern for acute systolic heart failure. He developed atrial fibrillation with rapid ventricular response and was transferred to intensive care unit and started on a diltiazem drip. His Lasix was held the following day as his lactic acid began to rise. He was given multiple liters of IV fluids despite concern for heart failure as he was septic and we felt we could support his heart failure with oxygen and diurese him once the sepsis resolved. His antibiotics were also broadened to vancomycin and cefepime. The vancomycin was later discontinued as blood culture and urine culture grew E. coli. Cefepime was then de-escalate to ceftriaxone. His heart rate became controlled on the diltiazem drip and he was transitioned to oral metoprolol. His echocardiogram revealed an ejection fraction of 45% without any wall motion abnormalities. His oxygen requirements improved after the sepsis resolved. He was then placed on oral diuretics and repeat chest x-ray showed significant improvement in the pulmonary edema. There was concern on the initial CT of the chest that there may have been an esophageal mass with possible metastatic disease. General surgery was consulted and performed an endoscopy which did not show any evidence of mass. There was evidence of gastritis. The patient was started on Protonix for this. We discussed the MRI findings with neurology at [facility] in [place] and they recommended starting anticoagulation 1 week after the stroke. He was continued on aspirin during this hospitalization. He was evaluated by PT and OT and outpatient OT/PT is recommended. His only deficit is mild dysmetria of the right upper extremity as he has some difficulty with fine motor skills. The royal perez's white count continue to improve during his hospitalization and although it is still a little elevated, it has been trending in the right direction each day. The patient prefers to go home today to limit hospitalization cost and so he will be discharged on oral Levaquin to complete 2 weeks of therapy. He will also be discharged on Toprol, lisinopril, Lasix and Protonix. He was instructed to continue aspirin full dose on a daily basis and then he will begin Eliquis on the and discontinue the aspirin. We will also continue Lipitor. We have provided him with resources to obtain a primary care physician for follow-up and is it was recommended that he be referred to cardiology and neurology. - ALLERGIES Allergies/Adverse Reactions: Allergies Allergy/AdvReac Type Severity Reaction Status Date / Time No Known Drug Allergies Allergy Verified 05/22/21 10:15 - MEDICATIONS Home Medications: Ambulatory Orders Medication Instructions Recorded Confirmed Apixaban [Eliquis] 5 mg PO BID #60 tablet 05/25/21 Aspirin [Boy] 325 mg PO DAILYWM #7 tablet 05/25/21 Atorvastatin [Lipitor] 80 mg PO QPM #60 tablet 05/25/21 Furosemide [Lasix] 40 mg PO DAILY #30 tablet 05/25/21 Metoprolol Succinate [Toprol Xl] 50 mg PO BID #60 tablet 05/25/21 Pantoprazole [Protonix] 40 mg PO QDAC #30 tablet 05/25/21 Tamsulosin [Flomax] 0.4 mg PO HS #30 cap 05/25/21 levoFLOXacin [Levaquin] 750 mg PO DAILY 11 Days #33 tablet 05/25/21 lisinopriL [Zestril] 10 mg PO DAILY #60 tablet 05/25/21 - PHYSICAL EXAM AT DISCHARGE General Appearance: positive: No acute distress, Alert Eyes Bilateral: positive: Normal inspection, Conjunctivae nml ENT: positive: ENT inspection nml Neck: positive: Nml inspection Respiratory: positive: No respiratory distress, Breath sounds nml. negative: Wheezes, Rales Cardiovascular: positive: Irregularly irregular, Extrasystoles. negative: Systolic murmur Abdomen: positive: Non-tender, No distention. negative: Tenderness Skin: positive: Warm, Dry Extremities: positive: No pedal edema Neurologic/Psychiatric: positive: Other (Mild dysmetria of the right upper extremity. Gross motor strength is 5 out of 5 in all 4 extremities.). negative: Disoriented to person, Disoriented to place, Facial droop, Slurred/abnml speech Physical Exam Other/Comments: Vital Signs - 24 hr 05/24/21 05/25/21 05/25/21 20:53 00:58 05:00 Temperature 36.3 C L 36.4 C L 36.3 C L Heart Rate [ 92 Brachial] Heart Rate [ 82 Monitoring electrodes] Heart Rate [ 53 L Radial] Respiratory 22 23 22 Rate Blood Pressure [Left Brachial artery] Blood Pressure 176/85 H [Left Radial artery] Blood Pressure 160/100 H 158/104 H [Right Brachial artery] O2 Saturation 98 95 95 05/25/21 05/25/21 07:40 11:41 Temperature 36.3 C L 36.5 C Heart Rate [ 57 L 101 H Brachial] Heart Rate [ Monitoring electrodes] Heart Rate [ Radial] Respiratory 20 20 Rate Blood Pressure 153/92 H [Left Brachial artery] Blood Pressure [Left Radial artery] Blood Pressure 147/103 H [Right Brachial artery] O2 Saturation 98 97 Oxygen O2 Source Room air - LABS Result Diagrams: 05/25/21 06:14 05/25/21 06:14 - DIAGNOSTIC IMAGING Diagnostic Imaging Results: Final report reviewed - SEPSIS Current Stage of Sepsis: Resolved Possible source of Sepsis: Genitourinary Sepsis Criteria: Recorded Temperature greater than 38.3C or Less than 36C, Recorded Heart Rate greater than 90 bpm, WBC count greater than 10% bands, WBC count greater than 12,000 or less than 4000, Renal: urine output less than 0.5ml/kg/hr for 2 hours or creatinine gr, Metabolic: lactate > 2 mmol/L - FOLLOW UP Follow Up: He was instructed to follow-up with a primary care physician within 1 to 2 weeks and that he would benefit from cardiology and neurology referrals. - TIME SPENT Time Spent in Discharge (Minutes): 39
--- NOTE | 2021-05-25 08:43 | Ultrasound Report ---
PROCEDURE: Carotid Doppler Complete INDICATIONS: Stroke. TECHNIQUE: Color and pulse Doppler interrogation was performed of both carotid systems, with image documentation and velocity measurements. COMPARISON: None. FINDINGS: Right side: Brachial blood pressure: 160/90 mm Hg. Common carotid artery peak systolic velocity: 87 cm/sec. Internal carotid artery peak systolic velocity: 126 cm/sec. Internal carotid artery end diastolic velocity: 10.3 cm/sec. External carotid artery peak systolic velocity: 136 cm/sec. ICA/CCA peak systolic ratio: 1.5 . Calvert scale imaging description: Intimal thickening with moderate atheromatous change Percent internal carotid artery stenosis: 50-69% stenosis . Vertebral artery: Flow direction is antegrade. Left side: Brachial blood pressure: 160/100 mm Hg. Common carotid artery peak systolic velocity: 77 cm/sec. Internal carotid artery peak systolic velocity: 244 cm/sec. Internal carotid artery end diastolic velocity: 32 cm/sec. External carotid artery peak systolic velocity: 96 cm/sec. ICA/CCA peak systolic ratio: 3.2 . Calvert scale imaging description: Intimal thickening with moderate to advanced atheromatous change. Percent internal carotid artery stenosis: Greater than 70% . Vertebral artery: Flow direction is antegrade. IMPRESSION: 1. Approximately 72% stenosis of the left internal carotid artery diameter measurements. 2. 50-69% stenosis of the right internal carotid artery by ratio criteria. Reviewed by: Dustin Valerio MD on 05/25/2021 8:42 AM PDT Approved by: Dustin Valerio MD on 05/25/2021 8:42 AM PDT Station ID: [id number]
[2021-05-25] MEDS: FUROSEMIDE 40 MG TABLET PO SCH ×2 (08:55→10:36)
[2021-05-25] MEDS: lisinopriL 5 MG TABLET PO SCH (08:55)
[2021-05-25] MEDS: ENOXAPARIN 40 MG/0.4 ML SYRINGE SUBQ SCH (08:56)
[2021-05-25] MEDS: METOPROLOL SUCCINATE 50 MG TABLET PO SCH (08:56)
[2021-05-25] MEDS ORDERED: levoFLOXacin 250 MG TABLET PO SCH (09:00)
[2021-05-25 11:57] VITALS: BP 153/92
== END 2021-05-25 13:00 | disposition home or self-care (01) | DRG 871 ==
LOC: ED 17:37 → MERGE 20:19 → ICU 20:19 → MS2 05-23 13:32
PROVIDERS: ADMIT Internal Medicine; ATTEND Internal Medicine
PROC: 0DJ08ZZ Inspection of Upper Intestinal Tract, Via Natural or Artificial Opening Endoscopic (ICD-10-PCS; principal; 2021-05-24 12:00)
DX: A41.9 Sepsis, unspecified organism (principal); A41.51 Sepsis due to Escherichia coli [E. coli]; N12 Tubulo-interstitial nephritis, not specified as acute or chronic; G45.9 Transient cerebral ischemic attack, unspecified; K22.9 Disease of esophagus, unspecified; R09.02 Hypoxemia; J18.9 Pneumonia, unspecified organism; I50.9 Heart failure, unspecified; Z20.822 Contact with and (suspected) exposure to COVID-19; I63.9 Cerebral infarction, unspecified; R07.9 Chest pain, unspecified; J96.01 Acute respiratory failure with hypoxia; I50.23 Acute on chronic systolic (congestive) heart failure; N39.0 Urinary tract infection, site not specified; N17.9 Acute kidney failure, unspecified; J90 Pleural effusion, not elsewhere classified; G81.91 Hemiplegia, unspecified affecting right dominant side; R65.20 Severe sepsis without septic shock; I48.91 Unspecified atrial fibrillation; I25.2 Old myocardial infarction; T50.916A Underdosing of multiple unspecified drugs, medicaments and biological substances, initial encounter; Z91.128 Patient's intentional underdosing of medication regimen for other reason; I11.0 Hypertensive heart disease with heart failure; K29.70 Gastritis, unspecified, without bleeding; R27.8 Other lack of coordination; E04.1 Nontoxic single thyroid nodule; R13.10 Dysphagia, unspecified; R47.89 Other speech disturbances; R23.3 Spontaneous ecchymoses; R31.9 Hematuria, unspecified; I65.22 Occlusion and stenosis of left carotid artery; N40.1 Benign prostatic hyperplasia with lower urinary tract symptoms; R33.8 Other retention of urine
CPT/HCPCS: 36415; 70450; 70460; 70551; 71045; 71275; 74174; 80048; 80053; 80061; 81001; 82330; 83605; 83735; 83880; 84100; 84132; 84443; 84484; 85025; 85610; 85730; 86140; 87040; 87086; 87150; 87181; 87631; 93005; 93306; 93880; 94640; 94664; 96374; 96375; 97162; 97166; 97530; 99285; 99291; A9270; G0480; J1650; J3370; J7120; Q9967; 0202U; 80320; 81003; 83721

== ENCOUNTER 2021-06-11 09:01 | Emergency (ER) | payer MEDICARE ==
--- OUTSIDE RECORDS SUMMARY | 2021-06-11 09:38 | EXTERNAL MEDICAL SUMMARY RPT | Continuity of Care Document ---
:1945 Author Organization [facility] Address [address] [place] [address] Phone Care Team Providers Name Role Phone MD Unavailable Unavailable Allergies No information. Encounters No information. Medications date description facility 20210608 metoprolol succinate All 20210608 tamsulosin All 20210608 atorvastatin All 20210608 pantoprazole All 20210608 furosemide All 20210608 lisinopril All 20210608 levofloxacin All 20210608 apixaban All Problems date description facility 20210608 Tobacco use and exposure All 20210608 Tobacco smoking status [facility] All 20210608 Repeated prescription All 20210608 Never smoker All 20210608 Issue of repeat prescriptions All 20210608 Exercise All 20210608 Encounter for issue of repeat prescript ion All 20210608 Details of drug misuse behavior All 20210608 Alcohol use All Results No information. Vital Signs date measurement value source 20210608 weight_standard 189 lb 20210608 weight_metric 85.73 kg 20210608 respiration_rate 18 /min 20210608 height_standard 71.5 in 20210608 height_metric 181.61 cm 20210608 heart_rate 66 /min 20210608 BP_systolic 149 mm[Hg] 20210608 BP_diastolic 89 mm[Hg] 20210608 BMI 26.09 kg/m2
[2021-06-11 09:59] LABS: BASOPHILS # (AUTO) 0.1 10^3/uL (0.0-0.1); BASOPHILS % (AUTO) 0.7 %; EOSINOPHILS # (AUTO) 0.2 10^3/uL (0.0-0.7); EOSINOPHILS % (AUTO) 2.1 %; HCT - HEMATOCRIT 46.4 % (42.0-52.0); HGB - HEMOGLOBIN 15.4 g/dL (14.0-18.0); LYMPHOCYTES # (AUTO) 1.2 10^3/uL (1.5-3.5); LYMPHOCYTES % (AUTO) 17.1 %; MEAN CORPUSCULAR HEMOGLOBIN 28.7 pg (27.0-31.0); MEAN CORPUSCULAR HGB CONC 33.2 g/dL (32.0-36.0); MEAN CORPUSCULAR VOLUME 86.6 fL (80.0-94.0); MEAN PLATELET VOLUME 10.2 fL (7.4-11.4); MONOCYTES # (AUTO) 0.8 10^3/uL (0.0-1.0); MONOCYTES % (AUTO) 11.3 %; NEUTROPHILS % (AUTO) 68.2 %; PLT - PLATELET COUNT 278 10^3/uL (130-450); RED BLOOD COUNT 5.36 10^6/uL (4.70-6.10); RED CELL DISTRIBUTION WIDTH 12.7 % (12.0-15.0); WHITE BLOOD COUNT 7.3 x10^3/uL (4.8-10.8)
[2021-06-11 10:23] LABS: GLUCOSE, URINE (UA) NEGATIVE (NEGATIVE); KETONES,URINE (UA) NEGATIVE (NEGATIVE); LEUKOCYTE ESTERASE, URINE NEGATIVE (NEGATIVE); NITRITE,URINE POSITIVE (NEGATIVE); OCCULT BLOOD,URINE LARGE (NEGATIVE); PH,URINE 5.5 PH (5.0-7.5); PROTEIN,URINE 100 mg/dL (NEGATIVE); UROBILINOGEN,URINE 0.2 (NORMAL) E.U./dL (NORMAL)
[2021-06-11 10:29] LABS: CLARITY,URINE CLOUDY (CLEAR)
[2021-06-11 10:32] LABS: BILIRUBIN,URINE NEGATIVE (NEGATIVE); ICTOTEST,URINE NEGATIVE
[2021-06-11 10:40] LABS: BACTERIA,URINE Few /HPF (None Seen); RBC,URINE TNTC /HPF (0-5); SQUAMOUS EPITHELIAL CELL,UR RARE Squamous (<= Few)
[2021-06-11 10:41] LABS: ALBUMIN 3.8 g/dL (3.2-5.5); ALBUMIN/GLOBULIN RATIO 1.1 (1.0-2.2); POTASSIUM 4.2 mmol/L (3.5-5.0); TOTAL PROTEIN 7.2 g/dL (6.7-8.2)
[2021-06-11] MEDS ORDERED: SULFAMETH/TRIMETH DS 800/160 MG TABLET PO STA (11:30)
--- NOTE | 2021-06-11 11:34 | ED Physician Documentation ---
History of Present Illness - Stated complaint Stated Complaint: MALE - Chief complaint Chief Complaint: Abd Pain - History obtained from History obtained from: Patient - Additonal information Additional information: Pt comes to the ED with CC of hematuria that started last night. He states he was recently started on Eliquis, and had a UTI a couple of weeks ago. Pt states he had a brief "twinge" of pain in his L flank early this morning, but this is gone now. No pain since. No nausea. No dysuria. No fevers. Pt denies h/o kidney stone. No easy bruising or bleeding elsewhere. Pt states he feels completely fine otherwise. Review of Systems Ten Systems: 10 systems reviewed and negative Constitutional: reports: Reviewed and negative Eyes: reports: Reviewed and negative Ears: reports: Reviewed and negative Nose: reports: Reviewed and negative Throat: reports: Reviewed and negative Cardiac: reports: Reviewed and negative Respiratory: reports: Reviewed and negative GI: reports: Reviewed and negative : reports: Hematuria Skin: reports: Reviewed and negative Musculoskeletal: reports: Reviewed and negative Neurologic: reports: Reviewed and negative Psychiatric: reports: Reviewed and negative Endocrine: reports: Reviewed and negative Immunocompromised: reports: Reviewed and negative PD PAST MEDICAL HISTORY - Past Medical History Past Medical History: Yes Cardiovascular: Congestive heart failure, Hypertension, High cholesterol, IA, Atrial fibrillation Respiratory: Other Neuro: CVA Endocrine/Autoimmune: None GI: GERD, Other : Benign prostate hypertrophy HEENT: None Psych: None Musculoskeletal: None Derm: None - Past Surgical History Past Surgical History: No - Present Medications Home Medications: Ambulatory Orders Medication Instructions Recorded Confirmed Apixaban [Eliquis] 5 mg PO BID #60 tablet 05/25/21 06/11/21 Atorvastatin [Lipitor] 80 mg PO QPM #60 tablet 05/25/21 06/11/21 Furosemide [Lasix] 40 mg PO DAILY #30 tablet 05/25/21 06/11/21 Metoprolol Succinate [Toprol Xl] 50 mg PO BID #60 tablet 05/25/21 06/11/21 Pantoprazole [Protonix] 40 mg PO QDAC #30 tablet 05/25/21 06/11/21 Tamsulosin [Flomax] 0.4 mg PO HS #30 cap 05/25/21 06/11/21 lisinopriL [Zestril] 10 mg PO DAILY #60 tablet 05/25/21 06/11/21 Sulfamethox/Trimeth 800/160 1 each PO BID #14 tablet 06/11/21 [Bactrim Ds 800/160] - Allergies Allergies/Adverse Reactions: Allergies Allergy/AdvReac Type Severity Reaction Status Date / Time No Known Drug Allergies Allergy Verified 06/11/21 09:21 - Social History Does the pt smoke?: No Smoking Status: Never smoker Does the pt drink ETOH?: No Does the pt have substance abuse?: No - Immunizations Immunizations are current?: Yes PD ED PE NORMAL - Vitals Vital signs reviewed: Yes - General General: Alert and oriented X 3, No acute distress, Well developed/nourished - HEENT HEENT: Atraumatic, PERRL, Moist mucous membranes - Neck Neck: Supple, no meningeal sign - Cardiac Cardiac: RRR, No murmur, Strong equal pulses - Respiratory Respiratory: No respiratory distress, Clear bilaterally - Abdomen Abdomen: Soft, Non tender, Non distended - Male Male : Other - Back Back: No CVA TTP - Derm Derm: Normal color, Warm and dry, No rash - Extremities Extremities: No deformity, No edema, No calf tenderness / cord - Neuro Neuro: Alert and oriented X 3, internet marketing manager 2-12 intact, Normal speech - Psych Psych: Normal mood, Normal affect Results - Vitals Vitals: Oxygen O2 Source Room air - Labs Labs: Microbiology 06/11/21 09:55 Urine Culture - Final Urine,Clean Catch No growth Laboratory Tests 06/11/21 06/11/21 06/11/21 09:54 09:54 09:55 WBC 7.3 RBC 5.36 Hgb 15.4 Hct 46.4 MCV 86.6 MCH 28.7 MCHC 33.2 RDW 12.7 Plt Count 278 MPV 10.2 Neut # (Auto) 5.0 Lymph # (Auto) 1.2 L [place] # (Auto) 0.8 Eos # (Auto) 0.2 Baso # (Auto) 0.1 Absolute Nucleated RBC 0.00 Nucleated RBC % 0.0 Sodium 139 Potassium 4.2 Chloride 103 Carbon Dioxide 27 Anion Gap 9.0 BUN 25 H Creatinine 1.0 Estimated GFR (MDRD) 73 L Glucose 75 Calcium 9.0 Total Bilirubin 1.0 AST 23 ALT 22 Alkaline Phosphatase 115 Total Protein 7.2 Albumin 3.8 Globulin 3.4 Albumin/Globulin Ratio 1.1 Lipase 60 H Urine Color BROWN Urine Clarity CLOUDY Urine pH 5.5 Ur Specific [place] 1.025 Urine Protein 100 H Urine Glucose (UA) NEGATIVE Urine Ketones NEGATIVE Urine Occult Blood LARGE H Urine Nitrite POSITIVE H Urine Bilirubin NEGATIVE Urine Urobilinogen 0.2 (NORMAL) Ur Leukocyte Esterase NEGATIVE Urine RBC TNTC H Urine WBC 6-10 H Ur Squamous Epith Cells RARE Squamous Urine Bacteria Few Ur Microscopic Review INDICATED Urine Culture Comments INDICATED PD MEDICAL DECISION MAKING - ED course Complexity details: reviewed results, re-evaluated patient, considered diffe elytial, d/w patient ED course: The pt was found to have gross hematuria, but normal H/H. UA showed mild signs of infection. Pt was started on abx for this. He has not had any significant pain at all, and no history of kidney stones, and at this time, I did not feel CT was indicated. He was instructed to continue his Eliquis for now. If he keeps having issues with hematuria after abx, he will need to see his doctor. We have discussed the usual indications for return. Departure - Departure Disposition: 01 Home, Self Care Clinical Impression: UTI (urinary tract infection) Qualifiers: Urinary tract infection type: acute cystitis Hematuria presence: with hematuria Qualified Code(s): N30.01 - Acute cystitis with hematuria Condition: Stable Instructions: ED UTI Cystitis Male Prescriptions: Sulfamethox/Trimeth 800/160 [Bactrim Ds 800/160] 1 each PO BID #14 tablet Comments: Your blood levels look good. You do have signs of both blood and infection in your urine, and have been started on an antibiotic for this today. Please continue your medications, as directed. You may hold the Lasix for now, if you feel like you are not short of breath or swollen, but if you begin to have recurrence of either, then you will need to restart the Lasix, so do not throw it away. Please keep your appointment follow-up with your primary care physician on the . Discharge Date/Time: 06/11/21 11:56
[2021-06-11 11:45] VITALS: BP 154/94
== END 2021-06-11 11:56 | disposition home or self-care (01) ==
LOC: ED 09:01
DX: N30.01 Acute cystitis with hematuria (principal)
CPT/HCPCS: 36415; 80053; 81001; 83690; 85025; 87086; 99282; 99283; A9270; 81003

== ENCOUNTER 2021-06-19 11:49 | Outpatient (CLI) | payer MEDICARE ==
[2021-06-19 18:06] LABS: BASOPHILS % (AUTO) 0.5 %; EOSINOPHILS # (AUTO) 0.2 10^3/uL (0.0-0.7); EOSINOPHILS % (AUTO) 2.8 %; HCT - HEMATOCRIT 48.1 % (42.0-52.0); HGB - HEMOGLOBIN 15.7 g/dL (14.0-18.0); LYMPHOCYTES # (AUTO) 1.6 10^3/uL (1.5-3.5); LYMPHOCYTES % (AUTO) 20.7 %; MEAN CORPUSCULAR HEMOGLOBIN 28.3 pg (27.0-31.0); MEAN CORPUSCULAR HGB CONC 32.6 g/dL (32.0-36.0); MEAN CORPUSCULAR VOLUME 86.8 fL (80.0-94.0); MEAN PLATELET VOLUME 10.4 fL (7.4-11.4); MONOCYTES # (AUTO) 0.6 10^3/uL (0.0-1.0); MONOCYTES % (AUTO) 7.9 %; NEUTROPHILS # (AUTO) 5.1 10^3/uL (1.5-6.6); NEUTROPHILS % (AUTO) 67.7 %; PLT - PLATELET COUNT 263 10^3/uL (130-450); RED BLOOD COUNT 5.54 10^6/uL (4.70-6.10); RED CELL DISTRIBUTION WIDTH 12.9 % (12.0-15.0); WHITE BLOOD COUNT 7.6 x10^3/uL (4.8-10.8)
== END 2021-06-19 23:59 | disposition home or self-care (01) ==
LOC: LAB.N 11:49
PROVIDERS: ATTEND Physician Assistant Medical
DX: R31.9 Hematuria, unspecified (principal)
CPT/HCPCS: 36415; 85025; 87086

== ENCOUNTER 2021-08-08 12:14 | Outpatient (CLI) | payer MEDICARE ==
[2021-08-08 16:42] LABS: AMORPHOUS SEDIMENT,UR Few /LPF; BACTERIA,URINE Rare /HPF (None Seen); RBC,URINE TNTC /HPF (0-5); SQUAMOUS EPITHELIAL CELL,UR NONE SEEN (<= Few)
== END 2021-08-08 23:59 | disposition home or self-care (01) ==
LOC: LAB.R 12:14
PROVIDERS: ATTEND Internal Medicine
DX: R31.0 Gross hematuria (principal); M79.10 Myalgia, unspecified site; G47.30 Sleep apnea, unspecified
CPT/HCPCS: 87086

== ENCOUNTER 2021-08-09 09:04 | Outpatient (CLI) | payer MEDICARE ==
[2021-08-09 16:22] LABS: CHOL/HDL RATIO 2.7 (<5.0); CHOLESTEROL 95 mg/dL; HDL CHOLESTEROL 35 mg/dL; LDL CHOLESTEROL,CALCULATED 51 mg/dL; LDL/HDL RATIO 1.5 (<3.6); TRIGLYCERIDES 47 mg/dL; VLDL CHOLESTEROL 9 mg/dL
== END 2021-08-09 23:59 | disposition home or self-care (01) ==
LOC: LAB.R 09:04
PROVIDERS: ATTEND Internal Medicine
DX: I63.9 Cerebral infarction, unspecified (principal); I10 Essential (primary) hypertension
CPT/HCPCS: 80061; 83721

== ENCOUNTER 2021-09-20 10:18 | Outpatient (CLI) | payer MEDICARE ==
[2021-09-20 10:40] LABS: CREATININE 1.1 mg/dL (0.6-1.2)
== END 2021-09-20 10:19 | disposition home or self-care (01) ==
LOC: LAB 10:18
PROVIDERS: ATTEND Physician Assistant Medical
DX: R31.0 Gross hematuria (principal); N40.0 Benign prostatic hyperplasia without lower urinary tract symptoms
CPT/HCPCS: 36415; 82565; 84153; 84520

== ENCOUNTER 2022-01-25 08:00 | Outpatient (CLI) | payer MEDICARE ==
[2022-01-25 16:14] LABS: BASOPHILS % (AUTO) 0.4 %; EOSINOPHILS # (AUTO) 0.2 10^3/uL (0.0-0.7); EOSINOPHILS % (AUTO) 2.7 %; HCT - HEMATOCRIT 44.4 % (42.0-52.0); HGB - HEMOGLOBIN 15.1 g/dL (14.0-18.0); LYMPHOCYTES # (AUTO) 1.7 10^3/uL (1.5-3.5); LYMPHOCYTES % (AUTO) 24.6 %; MEAN CORPUSCULAR HEMOGLOBIN 29.5 pg (27.0-31.0); MEAN CORPUSCULAR VOLUME 86.9 fL (80.0-94.0); MEAN PLATELET VOLUME 10.4 fL (7.4-11.4); MONOCYTES # (AUTO) 0.6 10^3/uL (0.0-1.0); MONOCYTES % (AUTO) 8.7 %; NEUTROPHILS # (AUTO) 4.5 10^3/uL (1.5-6.6); NEUTROPHILS % (AUTO) 63.2 %; PLT - PLATELET COUNT 205 10^3/uL (130-450); RED BLOOD COUNT 5.11 10^6/uL (4.70-6.10)
[2022-01-25 16:19] LABS: GLUCOSE, URINE (UA) NEGATIVE (NEGATIVE); KETONES,URINE (UA) NEGATIVE (NEGATIVE)
[2022-01-25 16:24] LABS: BILIRUBIN,URINE NEGATIVE (NEGATIVE); CLARITY,URINE CLOUDY (CLEAR); ICTOTEST,URINE NEGATIVE
[2022-01-25 16:25] LABS: BACTERIA,URINE Moderate /HPF (None Seen); RBC,URINE TNTC /HPF (0-5); SQUAMOUS EPITHELIAL CELL,UR RARE Squamous (<= Few); WBC,URINE >25 /HPF (0-3)
[2022-01-25 16:38] LABS: PSA TOTAL 4.97 ng/mL (0.000-2.000)
[2022-01-25 16:39] LABS: ALBUMIN 4.2 g/dL (3.2-5.5); ALBUMIN/GLOBULIN RATIO 1.2 (1.0-2.2); ALKALINE PHOSPHATASE 80 IU/L (42-121); ALT ALANINE AMINOTRANSFERASE 19 IU/L (10-60); AST ASPARTATE AMINOTRANSFERASE 13 IU/L (10-42); BILIRUBIN,TOTAL 1.3 mg/dL (0.2-1.0); BUN - BLOOD UREA NITROGEN 27 mg/dL (6-20); CALCIUM 9.3 mg/dL (8.5-10.3); CARBON DIOXIDE - CO2 25 mmol/L (21-32); CHLORIDE 107 mmol/L (101-111); CHOL/HDL RATIO 5.2 (<5.0); CHOLESTEROL 156 mg/dL; CREATININE 1.1 mg/dL (0.6-1.2); GFR - MDRD 65 (>89); GLUCOSE 92 mg/dL (70-100); HDL CHOLESTEROL 30 mg/dL; LDL CHOLESTEROL,CALCULATED 110 mg/dL; LDL/HDL RATIO 3.7 (<3.6); POTASSIUM 4.7 mmol/L (3.5-5.0); SODIUM 142 mmol/L (135-145); TOTAL PROTEIN 7.6 g/dL (6.7-8.2); TRIGLYCERIDES 78 mg/dL; VLDL CHOLESTEROL 16 mg/dL
[2022-01-25 16:43] LABS: THYROID STIMULATING HORMONE 2.37 uIU/mL (0.34-5.60)
[2022-01-25 17:05] LABS: PSA FREE 0.727 ng/mL (0.16-2.81)
[2022-01-26 05:10] LABS: HCV AB <0.1 s/co ratio (0.0-0.9)
== END 2022-01-25 23:59 | disposition home or self-care (01) ==
LOC: LAB.R 08:00
PROVIDERS: ATTEND Internal Medicine
DX: Z00.00 Encounter for general adult medical examination without abnormal findings (principal); I48.91 Unspecified atrial fibrillation; N40.0 Benign prostatic hyperplasia without lower urinary tract symptoms; R53.83 Other fatigue; I63.9 Cerebral infarction, unspecified; I11.0 Hypertensive heart disease with heart failure; I50.9 Heart failure, unspecified; K29.70 Gastritis, unspecified, without bleeding; R31.9 Hematuria, unspecified; Z11.59 Encounter for screening for other viral diseases
CPT/HCPCS: 80053; 80061; 81001; 81003; 82607; 83721; 84153; 84154; 84443; 85025; 86803; 87086